=== PATIENT | male | born 1970 | race Caucasian/White ===

== ENCOUNTER 2016-05-05 01:04 | Observation (INO) ==
[2016-05-05] MEDS ORDERED: *HR* Metoprolol 5 MG/5 ML VIAL IVP ONE ×2 (01:20→09:58)
[2016-05-05] MEDS: 0.9 % Sodium Chloride 500 ML IVC ONE ×2 (01:27→02:43)
[2016-05-05 01:29] LABS: Basophils % 0.3 %; Eosinophils # 0.1 K/mcL (0.0-0.6); Eosinophils % 2.2 %; Hematocrit 45.5 % (37.5-50.1); Hemoglobin 15.6 g/dL (12.9-16.9); Lymphocytes # 2.5 K/mcL (0.6-4.6); Lymphocytes % 42.3 %; Mean Corpuscular HGB Conc 34.3 g/dL (31.6-35.5); Mean Corpuscular Hemoglobin 30.2 pg (28.0-33.3); Mean Corpuscular Volume 88.2 fL (83.0-100.0); Mean Platelet Volume 8.6 fL (9.4-12.4); Monocytes # 0.4 K/mcL (0.0-1.3); Monocytes % 7.3 %; Neutrophils # 2.8 K/mcL (1.6-8.9); Platelet Count 281 K/mcL (140-400); Red Blood Count 5.16 M/mcL (4.19-5.50); Segmented Neutrophils % 47.9 %
--- NOTE | 2016-05-05 01:30 | Emergency Department Note ---
Disposition Clinical Impression: Atrial fibrillation with RVR Disposition: Admitted As Inpatient Condition: Good Time of Disposition: 02:43 Arrhythmia/Palpitations HPI - General Chief Complaint: ED Arrhythmia/Palpitations Stated Complaint: palpitations Time Seen by Provider: 05/05/16 01:16 Source: patient Mode of arrival: EMS Limitations: no limitations Nursing Notes Reviewed: Yes Vital Signs Reviewed: Yes - History of Present Illness HPI Narrative: 46-year-old male with a history of atrial fibrillation, his rhythm controlled with Cardizem daily he takes 120 mg daily. Patient states that spontaneously this evening at approximately 1900 hrs., he started noticing palpitations and that his heart was racing, he denied chest pain shortness of breath and currently denies any other symptoms. He was given Rythmol by his take up operator Dr. Carson and told take this if he had refractory atrial fibrillation, he took 1 dose, this did not versus symptoms, his heart rate was in the 140s he actually went to the fire station, and they did an EKG at that time and showed he was in atrial fibrillation. Sending him the emergency department. He still denies chest pain or shortness of breath. Pt Subjective Complaint: rapid heart beat, palpitations, irregular heart beat, atrial fibrillation Onset (ago): hour(s) Time: 19:00 Duration: constant Severity: mild Context: occurred during rest Arrhythmia History: atrial fibrillation Associated symptoms: Reports: denies other symptoms. Denies: chest pain, shortness of breath, syncope, near-syncope, nausea, vomiting, anxiety - Related Data Home Medications Medication Instructions Recorded Confirmed Aspirin [Ecotrin] 325 mg PO ONCE 05/05/16 05/05/16 Diltiazem HCl [Cardizem] 120 mg PO ONCE 05/05/16 05/05/16 Allergies Allergy/AdvReac Type Severity Reaction Status Date / Time acetaminophen [From Vicodin] Allergy Nausea Verified 05/05/16 01:20 hydrocodone [From Vicodin] Allergy Nausea Verified 05/05/16 01:20 Review of Systems: A 14 point ROS was obtained and was negative except as per below or as documented in the HPI. Constitutional: Denies: fever, chills, weakness, weight change Eyes: Denies: eye pain, eye discharge, vision change ENT: Denies: ear pain, throat pain, hearing loss, epistaxis, congestion, Cardiovascular: +palpitations Denies: chest pain, dyspnea on exertion, edema, syncope Respiratory: Denies: cough, dyspnea, wheezes, hemoptysis, stridor Gastrointestinal: Denies: abdominal pain, nausea, vomiting. diarrhea, constipation, hematemesis, hematochezia Genitourinary: Denies: urgency, dysuria, frequency, hematuria Musculoskeletal: Denies: back pain, neck pain, arthralgia, myalgia Integumentary: Denies: rash, abrasion, lesions Neurological: Denies: headache, weakness, numbness, paresthesias, confusion, abnormal gait Psychiatric: Denies: anxiety, depression, suicidal thoughts, homicidal thoughts , Endocrine: Denies: fatigue Hematological/Lymphatic: Denies: easy bleeding, easy bruising Allergic/Immunologic: Denies: facial swelling, urticaria All systems ED: reviewed and negative except as stated. Past Medical History - Past Medical History Attestation: Yes The following information was validated with the patient. Source: patient Medical history: Reports: atrial fibrillation, GERD Psychiatric history: Reports: anxiety - Social History Smoking Status: Never smoker Smokeless Tobacco Status: No Alcohol use: Reports: none Drug use: Reports: none Physical Exam General: alert and oriented, in NAD, appears stated age, is pleasant and cooperative to exam Head: NCAT, no lesions Eyes: sclera anicteric, conjunctiva normal, PERRLA bilaterally, EOMI Bilaterally Ears: normal inspection, external ear wnl Nose: nasal septum nondeviated, sinuses nontender Throat: good dentition, mucous membranes moist Neck: no lymphadenopathy, trachea midline no deviation, no JVD Resp: CTA bilaterally, no resp distress, symmetric chest rise, no wheezes, rales , or rhonchi bilaterally CV: Irregularly irregular rhythm, tachycardia Abdomen: Soft, NTND, no hepatosplenomegaly, no hernias, Negative Rovsing's sign , Negative Barrientos's sign Back: normal inspection, no tenderness to palpation, Negative CVA tenderness bilaterally Neuro: A&O3, CN II-XII grossly intact bilaterally, no motor or sensory deficits bilaterally, gait normal, GCS 15 [id number] Ext: normal inspection, symmetric Active and Passive ROM UE and LE bilaterally , no pedal edema bilaterally Psych: normal mood, normal affect Skin: No rashes, skin warm, dry, intact - General Limitations: no limitations General appearance: alert, in no apparent distress Course Course Narrative: 46-year-old male with known atrial fibrillation, presents after an episode of atrial fibrillation started at 1900 tonight, chest pain workup ordered, rate is 147 and irregular on EKG, we will try IV Lopressor 5 mg. - Reevaluation(s) Reevaluation #1: Patient's rate did go down 119, but still irregular with Lopressor, will start diltiazem bolus of 10 in drip at 5 titrated to effect. Reevaluation #2: Patient admitted to medicine service for atrial fibrillation with RVR, Dr. Monteiro accepting physician Time: 02:20 Vital Signs Temperature 97.3 F L 05/05/16 01:05 Pulse Rate 112 05/05/16 01:05 Respiratory Rate 16 05/05/16 01:05 Blood Pressure 119/73 05/05/16 01:05 O2 Sat by Pulse Oximetry 98 05/05/16 01:05 Temperature 97.3 F L 05/05/16 01:05 Pulse Rate 71 05/05/16 02:29 Respiratory Rate 16 05/05/16 02:54 Blood Pressure 108/81 05/05/16 02:54 O2 Sat by Pulse Oximetry 98 05/05/16 02:29 Oxygen Delivery Oxygen Delivery Room Air Arrhythmia/Palpitations - Differential Diagnosis Differential Diagnosis: Likely: palpitations, sinus tachycardia, artial arrhythmia, ventricular premature beats, supraventricular tachycardia - Medical Records Medical records reviewed: Yes I reviewed the patient's medical records. - Lab Data Result diagrams: 05/05/16 01:22 05/05/16 01:22 Lab Results 05/05/16 05/05/16 05/05/16 Range/Units 01:22 01:22 01:22 WBC 5.9 (4.3-11.1) K/mcL RBC 5.16 (4.19-5.50) M/mcL Hgb 15.6 (12.9-16.9) g/dL Hct 45.5 (37.5-50.1) % MCV 88.2 (83.0-100.0) fL MCH 30.2 (28.0-33.3) pg MCHC 34.3 (31.6-35.5) g/dL RDW 12.0 (11.5-14.5) % Plt Count 281 (140-400) K/mcL MPV 8.6 L (9.4-12.4) fL Immature Gran % 0.0 (0-4) % Seg Neutrophils % 47.9 % Lymphocytes % 42.3 % Monocytes % 7.3 % Eosinophils % 2.2 % Basophils % 0.3 % Neutrophils # 2.8 (1.6-8.9) K/mcL Lymphocytes # 2.5 (0.6-4.6) K/mcL Monocytes # 0.4 (0.0-1.3) K/mcL Eosinophils # 0.1 (0.0-0.6) K/mcL Basophils # 0.0 (0.0-0.2) K/mcL PT 10.2 (9.4-12.1) Seconds INR 1.0 APTT 30.2 (26.0-36.0) Seconds Sodium 141 (136-145) mEq/L Potassium 4.1 (3.5-4.5) mEq/L Chloride 107 (98-109) mEq/L Carbon Dioxide 27 (19-29) mEq/L BUN 15 (8-26) mg/dL Creatinine 1.06 (0.72-1.25) mg/dL Est GFR ( Amer) > 60 (> 60) Est GFR (Non-Af Amer) > 60 (> 60) BUN/Creatinine Ratio 14 (6-26) Glucose 108 H (70-99) mg/dL Calculated Osmolality 293 (280-300) Calcium 9.7 (8.6-10.8) mg/dL Troponin I (0-0.03) ng/mL TSH 3.056 (0.350-4.840) mcIU/mL 05/05/16 Range/Units 01:22 WBC (4.3-11.1) K/mcL RBC (4.19-5.50) M/mcL Hgb (12.9-16.9) g/dL Hct (37.5-50.1) % MCV (83.0-100.0) fL MCH (28.0-33.3) pg MCHC (31.6-35.5) g/dL RDW (11.5-14.5) % Plt Count (140-400) K/mcL MPV (9.4-12.4) fL Immature Gran % (0-4) % Seg Neutrophils % % Lymphocytes % % Monocytes % % Eosinophils % % Basophils % % Neutrophils # (1.6-8.9) K/mcL Lymphocytes # (0.6-4.6) K/mcL Monocytes # (0.0-1.3) K/mcL Eosinophils # (0.0-0.6) K/mcL Basophils # (0.0-0.2) K/mcL PT (9.4-12.1) Seconds INR APTT (26.0-36.0) Seconds Sodium (136-145) mEq/L Potassium (3.5-4.5) mEq/L Chloride (98-109) mEq/L Carbon Dioxide (19-29) mEq/L BUN (8-26) mg/dL Creatinine (0.72-1.25) mg/dL Est GFR ( Amer) (> 60) Est GFR (Non-Af Amer) (> 60) BUN/Creatinine Ratio (6-26) Glucose (70-99) mg/dL Calculated Osmolality (280-300) Calcium (8.6-10.8) mg/dL Troponin I 0.00 (0-0.03) ng/mL TSH (0.350-4.840) mcIU/mL - Radiology Data Radiology results reviewed: Yes I reviewed the patient's radiology results. - EKG Data EKG attestation: Yes I reviewed and interpreted this EKG. EKG results narrative: Repeat EKG obtained shows heart rate of 69 bpm, still atrial fibrillation. Rate: tachycardia Rhythm: A.Fib ([address] segment elevations or depressions. ) Interpretation: nonspecific ST-T wave changes (Changes from previous EKG in August 2014) - Core Measures AMI Core Measures Followed: No Measure Exclusions: not indicated Critical Care Time Critical Care Time: Yes Total Critical Care Time: 35 Attestation: Critical care performed: Time is exclusive of separately billable procedures. Time includes: direct patient care, patient reassessment, coordination of patient care, interpretation of data (laboratory data, radiology data, and respiratory data), review of patient's medical records, medical consultation and documentation of patient care. Procedures included in critical care time: Procedures excluded from critical care time: Attestation Statement - Attestation Attestation: I, Kyle Meng MD, personally performed a history and physical exam of the patient and discussed their management with the resident. I reviewed the resident's note and agree with the documented findings, medical decision making , and plan of care. 46-year-old male with a prior history of paroxysmal atrial fibrillation presents to the emergency department with a complaint of palpitations. This started several hours earlier this evening. No chest pain or shortness of breath. No dizziness or syncope. On examination patient is a well-developed well-nourished well-appearing male in no acute distress. He is alert and oriented 3. There is no cyanosis or diaphoresis. Breath sounds are clear and equal bilaterally. Heart is tachycardic and irregularly irregular. Abdomen soft and nontender with normal bowel sounds. EKG shows atrial fibrillation with RVR. Labs reviewed. Chest x-ray negative. Patient received IV metoprolol, IV Cardizem, and Cardizem drip. The hospitalist, Dr. Monteiro, was consulted and accepted admission of the patient.
[2016-05-05 01:34] LABS: Prothrombin Time 10.2 Seconds (9.4-12.1)
[2016-05-05 01:37] LABS: Activated Partial Thrombo Time 30.2 Seconds (26.0-36.0)
[2016-05-05 01:42] LABS: BUN/Creatinine Ratio 14 (6-26); Blood Urea Nitrogen 15 mg/dL (8-26); Calcium 9.7 mg/dL (8.6-10.8); Carbon Dioxide 27 mEq/L (19-29); Chloride 107 mEq/L (98-109); Glucose 108 mg/dL (70-99); Osmolality,Calculated 293 (280-300); Potassium 4.1 mEq/L (3.5-4.5); Sodium 141 mEq/L (136-145); eGFR For African Americans > 60 (> 60); eGFR For Non-African Americans > 60 (> 60)
[2016-05-05 02:04] LABS: Thyroid Stimulating Hormone 3.056 mcIU/mL (0.350-4.840)
[2016-05-05] MEDS ORDERED: 0.9 % Sodium Chloride 1,000 ML IV ONE (02:19)
[2016-05-05] MEDS ORDERED: Naloxone 0.4 MG/ML INJ IVP PRN (03:06)
[2016-05-05] MEDS ORDERED: 0.9 % Sodium Chloride 250 ML ONE ×2 (03:16→04:59)
[2016-05-05] MEDS: Aspirin Enteric Coated 325 MG Tablet PO SCH (03:24)
--- NOTE | 2016-05-05 03:44 | Internal Med History&Physical ---
Date of Encounter: 05/05/16 Time of Encounter: 02:40 Internal Medicine - H&P: HPI Chief complaint: palpitation x 1day Admitted From: Emergency Dept Plans for Post Hospital Care: Home History of present illness: Mr. Delatorre is a 46 year old male with medical history significant for atrial fibrillation, his rhythm and rate-controlled cardizem CD daily 120 mg daily, HE ALSO HAS PRESCRIPTION FOR Rhythmol 150 mg po prn for acute episodes. The patient was at his basline level of health when at about 7pm yesterday, he experienced racing of his heart. He took a tablet of Rhythmol, but palpitation continue. He is a patient of Dr Carson. No chest pain or shortness of breath. He does not know what triggered this episode. He has only be hospitalized four times for afib with RVR since the diagnosis of atrial fibrillation in 2006. Other ROS were negative. He is FULL CODE as per discussion and nominates his Bozena DELATORRE ([phone]) as his NOK/POA. Medical history: Reports: atrial fibrillation, GERD Psychiatric history: Reports: anxiety Smoking Status: Never smoker Smokeless Tobacco Status: No Alcohol use: Reports: none Drug use: Reports: none Family history: mother: atrial fibrillation ROS: A 10-point ROS was performed, positives and relevant negatives are detailed , system-symptom not mentioned is assumed negative unless otherwise stated. Vital Signs Temperature 97.3 F L 05/05/16 01:05 Pulse Rate 112 05/05/16 01:05 Respiratory Rate 16 05/05/16 01:05 Blood Pressure 119/73 05/05/16 01:05 O2 Sat by Pulse Oximetry 98 05/05/16 01:05 Temperature 97.3 F L 05/05/16 01:05 Pulse Rate 71 05/05/16 02:29 Respiratory Rate 16 05/05/16 02:54 Blood Pressure 108/81 05/05/16 02:54 O2 Sat by Pulse Oximetry 98 05/05/16 02:29 No pale, anicteric, afebrile, acyanotic, not in distress, Moist mucosa, EOMI, PERRL HEENT: no cervical or jugular LN. 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 Skin: No active skin lesion Extremities: No pedal edema, normal pedal pulses, nocalf tenderness. Lab Results 05/05/16 05/05/16 05/05/16 Range/Units 01:22 01:22 01:22 WBC 5.9 (4.3-11.1) K/mcL RBC 5.16 (4.19-5.50) M/mcL Hgb 15.6 (12.9-16.9) g/dL Hct 45.5 (37.5-50.1) % MCV 88.2 (83.0-100.0) fL MCH 30.2 (28.0-33.3) pg MCHC 34.3 (31.6-35.5) g/dL RDW 12.0 (11.5-14.5) % Plt Count 281 (140-400) K/mcL MPV 8.6 L (9.4-12.4) fL Immature Gran % 0.0 (0-4) % Seg Neutrophils % 47.9 % Lymphocytes % 42.3 % Monocytes % 7.3 % Eosinophils % 2.2 % Basophils % 0.3 % Neutrophils # 2.8 (1.6-8.9) K/mcL Lymphocytes # 2.5 (0.6-4.6) K/mcL Monocytes # 0.4 (0.0-1.3) K/mcL Eosinophils # 0.1 (0.0-0.6) K/mcL Basophils # 0.0 (0.0-0.2) K/mcL PT 10.2 (9.4-12.1) Seconds INR 1.0 APTT 30.2 (26.0-36.0) Seconds Sodium 141 (136-145) mEq/L Potassium 4.1 (3.5-4.5) mEq/L Chloride 107 (98-109) mEq/L Carbon Dioxide 27 (19-29) mEq/L BUN 15 (8-26) mg/dL Creatinine 1.06 (0.72-1.25) mg/dL Est GFR ( Amer) > 60 (> 60) Est GFR (Non-Af Amer) > 60 (> 60) BUN/Creatinine Ratio 14 (6-26) Glucose 108 H (70-99) mg/dL Calculated Osmolality 293 (280-300) Calcium 9.7 (8.6-10.8) mg/dL Troponin I (0-0.03) ng/mL TSH 3.056 (0.350-4.840) mcIU/mL 05/05/16 Range/Units 01:22 WBC (4.3-11.1) K/mcL RBC (4.19-5.50) M/mcL Hgb (12.9-16.9) g/dL Hct (37.5-50.1) % MCV (83.0-100.0) fL MCH (28.0-33.3) pg MCHC (31.6-35.5) g/dL RDW (11.5-14.5) % Plt Count (140-400) K/mcL MPV (9.4-12.4) fL Immature Gran % (0-4) % Seg Neutrophils % % Lymphocytes % % Monocytes % % Eosinophils % % Basophils % % Neutrophils # (1.6-8.9) K/mcL Lymphocytes # (0.6-4.6) K/mcL Monocytes # (0.0-1.3) K/mcL Eosinophils # (0.0-0.6) K/mcL Basophils # (0.0-0.2) K/mcL PT (9.4-12.1) Seconds INR APTT (26.0-36.0) Seconds Sodium (136-145) mEq/L Potassium (3.5-4.5) mEq/L Chloride (98-109) mEq/L Carbon Dioxide (19-29) mEq/L BUN (8-26) mg/dL Creatinine (0.72-1.25) mg/dL Est GFR ( Amer) (> 60) Est GFR (Non-Af Amer) (> 60) BUN/Creatinine Ratio (6-26) Glucose (70-99) mg/dL Calculated Osmolality (280-300) Calcium (8.6-10.8) mg/dL Troponin I 0.00 (0-0.03) ng/mL TSH (0.350-4.840) mcIU/mL CXR: normal, no acute cardiopulmonary finding EKG 1; A fib with RVR, VENT NUET=271 EKG 2= A fib 69. IMP Atrial fibrillation with RVR plan Admit to telemetry Continue Cardizem drip Cardiology consult (Dr Carson is his rn relief charge) Continue ASA 325 MG for stroke prophylaxis, CHADS2=0. He may need cardioversion if he remains in afib despite achievement of rate control. I discussed my assessment with the patient, he verbalized understanding and is agreeable to admission. Past Med Surg Social Fam HX - Past Medical History Medical history: atrial fibrillation, GERD Psychiatric history: anxiety - Social History Smoking Status: Never smoker Smokeless Tobacco Status: No Alcohol use: none Drug use: none - Family History Father Living Status: Hx Family Endocrine Disorder: Yes Mother Living Status: Still Living Hx Family Cardiac Disorders: Yes (atrial fibrillitation) Internal Medicine - H&P: Meds Aspirin [Ecotrin] 325 mg PO ONCE 05/05/16 [History] Diltiazem HCl [Cardizem] 120 mg PO ONCE 05/05/16 [History] Allergies acetaminophen [From Vicodin] Allergy (Verified 05/05/16 01:20) Nausea hydrocodone [From Vicodin] Allergy (Verified 05/05/16 01:20) Nausea All Systems PM: A 10-system review of systems was performed and is negative for pertinent findings except as documented above in the HPI. - Constitutional Vitals: Temp Pulse Resp BP Pulse Ox 97.3 F L 71 16 108/81 98 05/05/16 01:05 05/05/16 02:29 05/05/16 02:54 05/05/16 02:54 05/05/16 02:29 Internal Med - H&P Results - Labs CBC & Chem 7: 05/05/16 01:22 05/05/16 01:22 - VTE Reasons for not Prescribing Prophylaxis: Treatment not Indicated - Low risk for VTE
--- NOTE | 2016-05-05 10:07 | Cardiology Consult Note ---
Date of Encounter: 05/05/16 Time of Encounter: 09:30 Assessment and Plan (1) PAF (paroxysmal atrial fibrillation) Current Visit: Yes Status: Chronic Hx of PAF dating back to 2006. 2 episodes of PAF in the past 2 years. Formerly on Rythmol scheduled 8+ years ago, has been recently controlled on Cardizem 120 mg daily. CHA2Ds Vasc=0, has been on ASA 325. Atrial fibrillation with RVR, rate 147 upon admission. Now rate controlled in the 80s. On Cardizem gtt at 7.5 mg/hr. TSH normal, electrolytes within expected range. Continue rate control strategy for now, give Lopressor 2.5 mg IV x1. If rhythm control strategy desired, recommend EVELIA guided CV in AM. To be followed by anticoagulation for at least 4 weeks. Will make NPO after midnight. Discussion w patient/family: The assessment and plan as outlined above was discussed with the patient and/or family members who expressed understanding and agreement. All questions were answered. Thank you for involving us in the care of your patient. Please call with any questions. The patient will be discussed and reviewed with Dr. Carrasquillo; changes to be made accordingly. History of Present Illness Consult date: 05/05/16 Requesting physician: Kris Landon Consult reason: Afib Chief complaint: Afib History of present illness: Mr. Cintron is a 46 year old male with past medical history significant for PAF who presents to the ED with complaints of fatigue and palpitations that started yesterday. Initial episode of AFib was in 2006. He reports "I knew my heart was out of rhythm again." Symptoms started shortly after removing a fingernail that was falling off due to injury; he endorses that while removing his fingernail he became nauseated and shortly thereafter he knew he went into Afib. He took prn Rythmol as directed by Dr. Carson which did not help symptoms. Upon arrival to ED, HR was 140's-150s. Prior CV testing includes: TTE 09/13/14: LVEF 45%, mild global hypokinesis, no significant valvular dysfunction, mild LVDD St. Echocardiogram 10/31/14: Baseline EF 50%. Normal treadmill stress echocardiogram. Exercise time=12 minutes, achieved 13 METs. Past Med Surg Social Fam HX - Past Medical History Medical history: atrial fibrillation, GERD Psychiatric history: anxiety - Social History Smoking Status: Never smoker Smokeless Tobacco Status: No Alcohol use: none Drug use: none - Family History Father Living Status: Hx Family Endocrine Disorder: Yes Mother Living Status: Still Living Hx Family Cardiac Disorders: Yes (atrial fibrillitation) Medications and Allergies Aspirin [Ecotrin] 325 mg PO ONCE 05/05/16 [History] Diltiazem HCl [Cardizem] 120 mg PO ONCE 05/05/16 [History] LORazepam [Ativan] 0.5 mg PO BID PRN 05/05/16 [History] Allergies acetaminophen [From Vicodin] Allergy (Verified 05/05/16 08:22) Nausea hydrocodone [From Vicodin] Allergy (Verified 05/05/16 08:22) Nausea All Systems Review: A 10-system review of systems was performed and is negative for pertinent findings except as documented above in the HPI. - Cardiovascular Cardiovascular: as per HPI Physical Examination Vital Signs, Last 4 Hours Temp Pulse Resp BP Pulse Ox 05/05/16 09:40 82 121/73 05/05/16 09:25 75 116/82 05/05/16 09:05 82 110/78 05/05/16 08:50 116 106/72 05/05/16 06:58 98.0 F 82 16 112/67 98 General: Conversant, No Apparent Distress HEENT: Atraumatic, Normocephaly, Mucus Membranes Moist Cardiac: Other (irregularly irregular) Lungs: Normal Breath Sounds Neuro: Alert and responsive Abdomen: Soft Skin: No rashes noted on visualized skin Musculoskeletal: No Chest Wall Tenderness Extremities: No Edema, Normal Pulses Results 05/05/16 01:22 05/05/16 01:22 Active Medications Aspirin (Aspirin Ec) 325 mg PO ONCE SCOOTER Stop: 11/04/16 03:01 Last Admin: 05/05/16 03:24 Dose: 325 mg Diltiazem HCl 125 mg/ Dextrose 125 mls @ 5 mls/hr IVC .Q24H SCOOTER; 5 MG/HR PRN Reason: Protocol Stop: 11/04/16 01:46 Last Admin: 05/05/16 09:13 Dose: 7.5 mg/hr, 7.5 mls/hr Metoprolol Tartrate (Lopressor) 2.5 mg IVP ONCE ONE Stop: 05/05/16 09:59 Naloxone HCl (Narcan) 0.4 mg IVP Q2MIN PRN PRN Reason: Opioid Reversal Stop: 11/04/16 03:07 - Imaging and Cardiology Echo: report reviewed Other Results: 12 hour tele: avg HR=90 Afib. - EKG Interpretation EKG results cardiology: personally reviewed Consult Discharge Plan - Plan Referrals: NO,PCP [Non-Partnered Physician] -
--- NOTE | 2016-05-05 12:27 | Internal Med Progress Note ---
Date of Encounter: 05/05/16 Time of Encounter: 10:00 - Assessment and plan (1) Atrial fibrillation with RVR Current Visit: Yes Status: Acute Assessment and plan: Currently on Cardizem drip uptitrated to 7.5 mL per hour. He is asymptomatic. Alert and oriented 3. Denies pain, shortness of breath, palpitations, lightheadedness or dizziness. [id number] score 0- no indication for anticoagulation therapy- no DVT prophylaxis indicated- up ad magalys, observation patient. Cardiology is on board. (2) PAF (paroxysmal atrial fibrillation) Current Visit: Yes Status: Chronic (3) GERD (gastroesophageal reflux disease) Current Visit: Yes Status: Chronic Assessment and plan: Denies current symptoms Qualifiers: Esophagitis presence: esophagitis presence not specified Qualified Code(s) : K21.9 - Gastro-esophageal reflux disease without esophagitis - Subjective Interval history: Patient seen and examined. On examination, patient sitting upright in bed watching television. Patient denies shortness of breath or pain. He states he is eating well. He denies concerns this time. - Constitutional Vitals: Temp Pulse Resp BP Pulse Ox 98.2 F 81 16 118/70 97 05/05/16 11:15 05/05/16 11:15 05/05/16 11:15 05/05/16 11:15 05/05/16 11:15 General appearance: Present: A&O X 3, pleasant, no acute distress, answers questions appropriately - Head Head exam: Present: atraumatic, normocephalic - Eye Eye exam: Present: PERRL, conjuntiva pink, sclera anicteric Pupils: Present: PERRL - Neck Neck exam general surgery: Present: supple, trachea midline. Absent: lymphadenopathy - Respiratory Respiratory exam: Present: CTAB. Absent: accessory muscle use, rales, rhonchi, wheezes - Cardiovascular Cardiovascular exam: Present: irregular rhythm, +S1, +S2. Absent: diastolic murmur, gallop, rubs, systolic murmur - GI/Abdominal GI/Abdominal exam: Present: normal bowel sounds, soft, no peritoneal signs. Absent: distended, tenderness - Extremities Exam Extremities exam: Present: warm, radial pulses palpable and symetrical. Absent : calf tenderness, cyanotic, pedal edema - Neurological Exam Neurological exam: Present: alert, CN II-XII intact, normal gait, oriented X3, no focal deficits, strengths equal and symetr throughout. Absent: pronater drift, facial droop, speech deficit - Skin Skin exam: Present: dry, intact, normal color, warm Internal Medicine: Result - Labs CBC & Chem 7: 05/05/16 01:22 05/05/16 01:22 - ABG Interpretation ABG results: PT/INR, D-dimer PT 10.2 Seconds (9.4-12.1) 05/05/16 01:22 - VTE Reasons for not Prescribing Prophylaxis: Treatment not Indicated - Low risk for VTE Consult Discharge Plan - Plan Referrals: Mark Norwood DO [Primary Care Provider] - 05/12/16 9:30 am
--- NOTE | 2016-05-05 15:08 | Electrocardiograph Report ---
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
--- NOTE | 2016-05-05 15:08 | Electrocardiograph Report ---
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
[2016-05-06] MEDS: Aspirin Enteric Coated 325 MG Tablet PO SCH ×2 (02:51→02:56)
[2016-05-06 07:44] VITALS: BP 105/71
[2016-05-06] MEDS ORDERED: Diltiazem CD (24hr) 120 MG CAPSULE PO SCH (09:00)
--- NOTE | 2016-05-06 09:03 | Cardiology Progress Note ---
Date of Encounter: 05/06/16 Time of Encounter: 08:30 Assessment and Plan (1) PAF (paroxysmal atrial fibrillation) Current Visit: Yes Status: Chronic Hx of PAF dating back to 2006. 2 episodes of PAF in the past 2 years. Formerly on Rythmol scheduled 8+ years ago, has been recently controlled on Cardizem 120 mg daily. CHA2Ds Vasc=0, has been on ASA 325. Atrial fibrillation with RVR, rate 147 upon admission; suspect paroxysm provoked by adrenergic response. TSH normal, electrolytes within expected range. Betablocker started yesterday evening and shortly thereafter converted to SR. Continue cardizem and atenolol as outpatient. Plan communicated with primary service, follow-up with EP as outpatient. Discussion w patient/family: The assessment and plan as outlined above was discussed with the patient and/or family members who expressed understanding and agreement. All questions were answered. Thank you for involving us in the care of your patient. Please call with any questions. The patient will be discussed and reviewed with Dr. Carrasquillo; Cardiology will sign- off, follow-up with as outpt. Subjective Principal diagnosis: Afib Interval history: Seen and examined. Converted to NSR around 6PM yesterday evening. No complaints overnight. Objective Vital Signs, Last 4 Hours Temp Pulse Resp BP Pulse Ox 05/06/16 07:43 97.3 F L 85 12 105/71 98 General: Conversant, No Apparent Distress HEENT: Atraumatic, Normocephaly, Mucus Membranes Moist Cardiac: Reg Rate and Rhythm, Normal S1 and S2 Lungs: Normal Breath Sounds Neuro: Alert and responsive Abdomen: Soft Skin: No rashes noted on visualized skin Musculoskeletal: No Chest Wall Tenderness Extremities: No Edema, Normal Pulses Results 05/05/16 01:22 05/05/16 01:22 - Imaging and Cardiology Stress Test: report reviewed Echo: report reviewed - EKG Interpretation EKG results cardiology: personally reviewed - VTE Reasons for not Prescribing Prophylaxis: Treatment not Indicated - Low risk for VTE Consult Discharge Plan - Plan Referrals: Mark Norwood DO [Primary Care Provider] - 05/12/16 9:30 am
--- NOTE | 2016-05-06 13:23 | Discharge Summary ---
Date of Encounter: 05/06/16 Time of Encounter: 12:30 - Discharge Diagnosis (1) Atrial fibrillation with RVR Priority: Primary Status: Resolved Comments: Was on a Cardizem drip, converted to NSR. No ablation indicated. Started on beta lalo per cardiology for suspected paroxysmal atrial fibrillation provoked by adjuvant allergic response. Follow up outpatient. (2) PAF (paroxysmal atrial fibrillation) Priority: Secondary Status: Chronic (3) GERD (gastroesophageal reflux disease) Priority: Secondary Status: Chronic Qualifiers: Esophagitis presence: esophagitis presence not specified Qualified Code(s) : K21.9 - Gastro-esophageal reflux disease without esophagitis - Discharge Medications Prescriptions: Atenolol [Tenormin] 25 mg PO DAILY #30 tablet Home Medications: Aspirin [Ecotrin] 325 mg PO ONCE 05/05/16 [History] Diltiazem HCl [Cardizem] 120 mg PO ONCE 05/05/16 [History] LORazepam [Ativan] 0.5 mg PO BID PRN 05/05/16 [History] Atenolol [Tenormin] 25 mg PO DAILY #30 tablet 05/06/16 [Rx] Allergies/Adverse Reactions: Allergies acetaminophen [From Vicodin] Allergy (Verified 05/05/16 08:22) Nausea hydrocodone [From Vicodin] Allergy (Verified 05/05/16 08:22) Nausea Procedures/tests Complete & Pending: Procedures Performed prior 72 hours Category Date Time Status ECG 12 lead ECG [ECG] Stat Y 05/05/16 02:19 Completed Date of admission: 05/05/16 02:17 Primary care physician: Mark Norwood, Consults: 05/05/16 03:38 Consult to Cardiology [CONS] Routine Comment: Consulting Provider: Cardiology Trish Reason for Consult: A FIB RVR Call Completed: No Discharging clinician: Amalia Garcia Anticipated date of discharge: 05/06/16 - Patient Status Disposition: Home, Self-Care Condition: Good Functional capacity at discharge: independent ambulation Overall status at discharge: patient is back to baseline - Discharge Instructions Follow Up With: Mark Norwood DO [Primary Care Provider] - 05/12/16 9:30 am Fitz Carson MD [Partnered Physician] - Additional Instructions: Follow-up with primary care provider as scheduled, follow-up with cardiology as needed - Diet and Activity Activity: increase activity as tolerated, resume usual activities as tolerated Diet: regular diet Hospital course: Mr. Cintron is a 46 year old male with past medical history of atrial fibrillation rate controlled on Cardizem and Rythmol as needed, GERD, anxiety. Patient presented to the emergency department chief complaint palpitations 1 day. Patient stating he took his as needed Rythmol tablet but palpitation continued. Patient denied any chest pain or shortness of breath. Upon presentation to the emergency department, patient noted to be A. fib RVR. Chest x-ray negative. Patient was admitted to the hospitalist service for further evaluation and management. Patient was started on a Cardizem drip. He was admitted and observed over the course of 3 days. On day 2, patient spontaneously converted back to sinus rhythm and an ablation was not indicated at that point. Radiology was on board throughout this admission. Per cardiology, strong suspicion for paroxysmal atrial fibrillation provoked by adrenergic response since the patient was started on low-dose propanolol. [id number] score 0- no indication for anticoagulation therapy. Patient remained stable and asymptomatic and he was discharged home in stable condition with close outpatient follow-up recommended. ITS Impressions Chest X-Ray 05/05/16 01:20 IMPRESSION: Negative portable chest. D/ / Yovany Vega MD / Yovany Vega MD Interpreting Provider: Yovany Vega MD - Time Spent with Patient Total time spent providing and/or coordinating discharge services: - Constitutional Vitals: Temp Pulse Resp BP Pulse Ox 97.3 F L 85 12 105/71 98 05/06/16 07:43 05/06/16 07:43 05/06/16 07:43 05/06/16 07:43 05/06/16 07:43 General appearance: Present: A&O X 3, pleasant, no acute distress, answers questions appropriately - Head Head exam: Present: atraumatic, normocephalic - Eye Eye exam: Present: PERRL, conjuntiva pink, sclera anicteric Pupils: Present: PERRL - Neck Neck exam general surgery: Present: supple, trachea midline. Absent: lymphadenopathy - Respiratory Respiratory exam: Present: CTAB. Absent: accessory muscle use, rales, respiratory distress, rhonchi, wheezes - Cardiovascular Cardiovascular exam: Present: RRR, +S1, +S2. Absent: diastolic murmur, gallop, rubs, systolic murmur - GI/Abdominal GI/Abdominal exam: Present: normal bowel sounds, soft, no peritoneal signs. Absent: distended, tenderness - Extremities Exam Extremities exam: Present: warm, radial pulses palpable and symetrical. Absent : calf tenderness, cyanotic, pedal edema - Neurological Exam Neurological exam: Present: alert, CN II-XII intact, normal gait, oriented X3, no focal deficits, strengths equal and symetr throughout. Absent: pronater drift, facial droop, speech deficit - Skin Skin exam: Present: dry, intact, normal color, warm - VTE Reasons for not Prescribing Prophylaxis: Treatment not Indicated - Low risk for VTE
--- NOTE | 2016-05-06 14:45 | Electrocardiograph Report ---
[facility] Test Date: 2016-05-05 Pat Name: ROMAIN DELATORRE Department: 113 Room: 3B39 Gender: M Manager Solution: [id number] Requested By: Amalia Garcia Order Number: [id number] Reading MD: Liudmila Carson Measurements Intervals [place] Rate: 57 P: 15 MA: 116 QRS: 12 QRSD: 105 T: 22 QT: 401 QTc: 395 Interpretive Statements SINUS BRADYCARDIA WITH SHORT MA INTERVAL Electronically Signed On 05-06-16 14:40:55 EST by Liudmila Carson
== END 2016-05-06 13:54 | disposition home or self-care (01) ==
LOC: EMEROO 01:04 → 3BNU 01:04
PROVIDERS: ADMIT Internal Medicine; ATTEND Nurse Practitioner Family

== ENCOUNTER 2016-05-30 20:03 | Observation (INO) ==
--- NOTE | 2016-05-30 20:17 | Emergency Department Note ---
Disposition Clinical Impression: Paroxysmal atrial fibrillation with RVR Disposition: Admitted As Inpatient Condition: Good General Adult HPI - General Chief complaint: ED Arrhythmia/Palpitations Stated complaint: "think my heart's out of rhythm" Time Seen by Provider: 05/30/16 20:14 Source: patient Limitations: no limitations - History of Present Illness Pain Scale: 0 - Related Data Home Medications Medication Instructions Recorded Confirmed Aspirin [Ecotrin] 325 mg PO DAILY 05/05/16 05/30/16 Diltiazem HCl [Cardizem] 120 mg PO DAILY 05/05/16 05/30/16 LORazepam [Ativan] 0.5 mg PO BID PRN 05/05/16 05/30/16 Previous Rx's Medication Instructions Recorded Atenolol [Tenormin] 25 mg PO DAILY #30 tablet 05/06/16 Allergies Allergy/AdvReac Type Severity Reaction Status Date / Time acetaminophen [From Vicodin] Allergy Nausea Verified 05/05/16 08:22 hydrocodone [From Vicodin] Allergy Nausea Verified 05/05/16 08:22 Past Medical History - Past Medical History Medical history: Reports: atrial fibrillation, GERD Psychiatric history: Reports: anxiety - Social History Smoking Status: Never smoker Smokeless Tobacco Status: No Alcohol use: Reports: none Drug use: Reports: none Physical Exam - General Limitations: no limitations General appearance: alert, in no apparent distress Course Vital Signs Temperature 97.6 F 05/30/16 20:03 Pulse Rate 93 05/30/16 20:03 Respiratory Rate 18 05/30/16 20:03 Blood Pressure 122/73 05/30/16 20:03 O2 Sat by Pulse Oximetry 97 05/30/16 20:03 Temperature 97.6 F 05/30/16 20:03 Pulse Rate 90 05/30/16 21:35 Respiratory Rate 18 05/30/16 22:22 Blood Pressure 111/86 05/30/16 22:22 O2 Sat by Pulse Oximetry 98 05/30/16 21:35 Oxygen Delivery Oxygen Delivery Room Air Medical Decision Making - Lab Data Result diagrams: 05/30/16 20:25 05/30/16 20:25 Lab Results 05/30/16 05/30/16 05/30/16 Range/Units 20:25 20:25 20:25 WBC 5.5 (4.3-11.1) K/mcL RBC 5.11 (4.19-5.50) M/mcL Hgb 15.4 (12.9-16.9) g/dL Hct 44.9 (37.5-50.1) % MCV 87.9 (83.0-100.0) fL MCH 30.1 (28.0-33.3) pg MCHC 34.3 (31.6-35.5) g/dL RDW 12.1 (11.5-14.5) % Plt Count 282 (140-400) K/mcL MPV 8.7 L (9.4-12.4) fL Immature Gran % 0.2 (0-4) % Seg Neutrophils % 38.9 % Lymphocytes % 51.5 % Monocytes % 6.8 % Eosinophils % 2.2 % Basophils % 0.4 % Neutrophils # 2.1 (1.6-8.9) K/mcL Lymphocytes # 2.8 (0.6-4.6) K/mcL Monocytes # 0.4 (0.0-1.3) K/mcL Eosinophils # 0.1 (0.0-0.6) K/mcL Basophils # 0.0 (0.0-0.2) K/mcL PT 11.0 (9.4-12.1) Seconds INR 1.0 APTT 32.9 (26.0-36.0) Seconds Sodium 144 (136-145) mEq/L Potassium 3.9 (3.5-4.5) mEq/L Chloride 106 (98-109) mEq/L Carbon Dioxide 28 (19-29) mEq/L BUN 14 (8-26) mg/dL Creatinine 1.05 (0.72-1.25) mg/dL Est GFR ( Amer) > 60 (> 60) Est GFR (Non-Af Amer) > 60 (> 60) BUN/Creatinine Ratio 13 (6-26) Glucose 95 (70-99) mg/dL Calculated Osmolality 298 (280-300) Calcium 10.0 (8.6-10.8) mg/dL Troponin I (0-0.03) ng/mL TSH 2.303 (0.350-4.840) mcIU/mL 05/30/16 Range/Units 20:25 WBC (4.3-11.1) K/mcL RBC (4.19-5.50) M/mcL Hgb (12.9-16.9) g/dL Hct (37.5-50.1) % MCV (83.0-100.0) fL MCH (28.0-33.3) pg MCHC (31.6-35.5) g/dL RDW (11.5-14.5) % Plt Count (140-400) K/mcL MPV (9.4-12.4) fL Immature Gran % (0-4) % Seg Neutrophils % % Lymphocytes % % Monocytes % % Eosinophils % % Basophils % % Neutrophils # (1.6-8.9) K/mcL Lymphocytes # (0.6-4.6) K/mcL Monocytes # (0.0-1.3) K/mcL Eosinophils # (0.0-0.6) K/mcL Basophils # (0.0-0.2) K/mcL PT (9.4-12.1) Seconds INR APTT (26.0-36.0) Seconds Sodium (136-145) mEq/L Potassium (3.5-4.5) mEq/L Chloride (98-109) mEq/L Carbon Dioxide (19-29) mEq/L BUN (8-26) mg/dL Creatinine (0.72-1.25) mg/dL Est GFR ( Amer) (> 60) Est GFR (Non-Af Amer) (> 60) BUN/Creatinine Ratio (6-26) Glucose (70-99) mg/dL Calculated Osmolality (280-300) Calcium (8.6-10.8) mg/dL Troponin I 0.01 (0-0.03) ng/mL TSH (0.350-4.840) mcIU/mL Attestation Statement - Attestation Attestation: I examined this patient and my medical decision-making was reviewed with the [employer] DRILLER HELPER/PA/Advanced Practice Nurse/Resident Physician. I agree with the documented findings, disposition and treatment plan as described except to the extent set forth below. [id number] time provided in conjunction with the resident physician Patient presents ambulatory to the treatment area with palpitations. He has a known history of atrial fibrillation for which he takes Cardizem and atenolol. He takes aspirin but no other blood thinners. EKG reviewed by me. Patient appears in no acute distress
[2016-05-30 20:28] LABS: Basophils % 0.4 %; Eosinophils # 0.1 K/mcL (0.0-0.6); Eosinophils % 2.2 %; Hematocrit 44.9 % (37.5-50.1); Hemoglobin 15.4 g/dL (12.9-16.9); Immature Granulocytes % 0.2 % (0-4); Lymphocytes # 2.8 K/mcL (0.6-4.6); Lymphocytes % 51.5 %; Mean Corpuscular HGB Conc 34.3 g/dL (31.6-35.5); Mean Corpuscular Hemoglobin 30.1 pg (28.0-33.3); Mean Corpuscular Volume 87.9 fL (83.0-100.0); Mean Platelet Volume 8.7 fL (9.4-12.4); Monocytes # 0.4 K/mcL (0.0-1.3); Monocytes % 6.8 %; Neutrophils # 2.1 K/mcL (1.6-8.9); Platelet Count 282 K/mcL (140-400); Red Blood Count 5.11 M/mcL (4.19-5.50); Red Cell Distribution Width 12.1 % (11.5-14.5); Segmented Neutrophils % 38.9 %
--- NOTE | 2016-05-30 20:31 | Emergency Department Note ---
Disposition Clinical Impression: Paroxysmal atrial fibrillation with RVR Disposition: Admitted As Inpatient Condition: Good Referrals: NO,PCP [Non-Partnered Physician] - Forms: ED Satisfaction Letter Time of Disposition: 21:59 Arrhythmia/Palpitations HPI - General Chief Complaint: ED Arrhythmia/Palpitations Stated Complaint: "think my heart's out of rhythm" Time Seen by Provider: 05/30/16 20:14 Source: patient Mode of arrival: ambulatory Limitations: no limitations Nursing Notes Reviewed: Yes Vital Signs Reviewed: Yes - History of Present Illness HPI Narrative: Patient is a 46-year-old male with past medical history of paroxysmal A. fib with RVR. Currently on diltiazem 120 mg daily, atenolol 25 mg daily. Not currently on any blood thinners, takes 325 mg aspirin daily. He states that he has had 6-7 episodes over the past 10 years and going in A. fib with RVR. Currently, denies any chest pain, shortness of breath, nausea, vomiting, fevers , abdominal pain. He did admit to some mild chest burning prior to arrival. This has dissipated. He also admits to diarrhea yesterday that has resolved today. Otherwise, no other current symptoms. He states that he has been admitted in the past answered on a Cardizem drip and then converted back to normal sinus rhythm without any further intervention. - Related Data Home Medications Medication Instructions Recorded Confirmed Aspirin [Ecotrin] 325 mg PO ONCE 05/05/16 05/05/16 Diltiazem HCl [Cardizem] 120 mg PO ONCE 05/05/16 05/05/16 LORazepam [Ativan] 0.5 mg PO BID PRN 05/05/16 05/05/16 Previous Rx's Medication Instructions Recorded Atenolol [Tenormin] 25 mg PO DAILY #30 tablet 05/06/16 Allergies Allergy/AdvReac Type Severity Reaction Status Date / Time acetaminophen [From Vicodin] Allergy Nausea Verified 05/05/16 08:22 hydrocodone [From Vicodin] Allergy Nausea Verified 05/05/16 08:22 All systems ED: reviewed and negative except as stated. Past Medical History - Past Medical History Attestation: Yes The following information was validated with the patient. Medical history: Reports: atrial fibrillation, GERD Psychiatric history: Reports: anxiety - Social History Smoking Status: Never smoker Smokeless Tobacco Status: No Alcohol use: Reports: none Drug use: Reports: none Physical Exam - General Limitations: no limitations General appearance: alert, in no apparent distress - Head Head exam: atraumatic, normocephalic, normal inspection - Eye Eye exam: Present: normal appearance, PERRL, EOMI - ENT ENT exam: normal exam, normal oropharynx, mucous membranes moist - Neck Neck exam: Present: normal inspection, full ROM, trachea midline - Chest Chest inspection: Present: normal inspection, symmetric chest wall rise - Respiratory Respiratory exam: Present: normal lung sounds bilaterally - Cardiovascular Cardiovascular exam: Present: tachycardia, irregular rhythm, normal heart sounds - Abdominal Exam Abdominal exam: Present: soft, Non-Tender. Absent: tenderness, distention, guarding, rebound, rigidity - Extremities Exam Extremities exam: Present: normal inspection, full ROM. Absent: tenderness, pedal edema - Expanded Upper Extremity Exam Shoulder exam: Present: normal inspection, full ROM Arm exam: Present: normal inspection, full ROM Elbow exam: Present: normal inspection, full ROM Forearm/Wrist exam: Present: normal inspection, full ROM Hand exam: Present: normal inspection, full ROM Vascular exam: Normal: capillary refill, radial pulse - Back Exam Back exam: Present: normal inspection, full ROM. Absent: tenderness - Neurological Exam Neurological exam: Present: alert, oriented X3 - Psychiatric Psychiatric exam: Present: normal affect, normal mood - Skin Skin exam: Present: warm, dry, intact, normal color Course Course Narrative: Patient heart rate in 150s on the monitor on my exam. Blood pressure was 105 over 70s. Otherwise, the rest of the vitals were within normal limits. Physical exam was benign. Will give the patient 10 mg of Cardizem push. Will monitor vitals and may have to start him on a Cardizem drip. We will also obtain a troponin, basic labs, chest x-ray. EKG shows A. fib with RVR, rate 138. No acute ST elevation or depression. 21:34 patient became rate controlled after receiving 10 mg Cardizem IV. His rate is now in the 80s. Blood pressure in 90s over 60s to 70s. 1 L normal saline bolus is currently infusing. Repeat EKG shows patient is still in A. fib at a rate of 89. No acute ST elevation or depression. I spoke with the satellite installer, Dr. Schulz, who wanted the patient admitted under hospitalist service with cardiology as a consult. He also requested a heparin drip be started for the patient. Patient is happy and agreeable with this plan. 21:58 Dr. Monteiro accepted for admission. Vital Signs Temperature 97.6 F 05/30/16 20:03 Pulse Rate 93 05/30/16 20:03 Respiratory Rate 18 05/30/16 20:03 Blood Pressure 122/73 05/30/16 20:03 O2 Sat by Pulse Oximetry 97 05/30/16 20:03 Temperature 97.6 F 05/30/16 20:03 Pulse Rate 90 05/30/16 21:35 Respiratory Rate 18 05/30/16 21:35 Blood Pressure 109/81 05/30/16 21:35 O2 Sat by Pulse Oximetry 98 05/30/16 21:35 Oxygen Delivery Oxygen Delivery Room Air Arrhythmia/Palpitations - MDM Narrative Medical decision making narrative: Patient heart rate in 150s on the monitor on my exam. Blood pressure was 105 over 70s. Otherwise, the rest of the vitals were within normal limits. Physical exam was benign. Will give the patient 10 mg of Cardizem push. Will monitor vitals and may have to start him on a Cardizem drip. We will also obtain a troponin, basic labs, chest x-ray. EKG shows A. fib with RVR, rate 138. No acute ST elevation or depression. 21:34 patient became rate controlled after receiving 10 mg Cardizem IV. His rate is now in the 80s. Blood pressure in 90s over 60s to 70s. 1 L normal saline bolus is currently infusing. Repeat EKG shows patient is still in A. fib at a rate of 89. No acute ST elevation or depression. I spoke with the satellite installer, Dr. Schulz, who wanted the patient admitted under hospitalist service with cardiology as a consult. He also requested a heparin drip be started for the patient. Patient is happy and agreeable with this plan. 21:58 Dr. Monteiro accepted for admission. - Medical Records Medical records reviewed: Yes I reviewed the patient's medical records. - Lab Data Lab results reviewed: Yes I reviewed the patient's lab results. Result diagrams: 05/30/16 20:25 05/30/16 20:25 Lab Results 05/30/16 05/30/16 05/30/16 Range/Units 20:25 20:25 20:25 WBC 5.5 (4.3-11.1) K/mcL RBC 5.11 (4.19-5.50) M/mcL Hgb 15.4 (12.9-16.9) g/dL Hct 44.9 (37.5-50.1) % MCV 87.9 (83.0-100.0) fL MCH 30.1 (28.0-33.3) pg MCHC 34.3 (31.6-35.5) g/dL RDW 12.1 (11.5-14.5) % Plt Count 282 (140-400) K/mcL MPV 8.7 L (9.4-12.4) fL Immature Gran % 0.2 (0-4) % Seg Neutrophils % 38.9 % Lymphocytes % 51.5 % Monocytes % 6.8 % Eosinophils % 2.2 % Basophils % 0.4 % Neutrophils # 2.1 (1.6-8.9) K/mcL Lymphocytes # 2.8 (0.6-4.6) K/mcL Monocytes # 0.4 (0.0-1.3) K/mcL Eosinophils # 0.1 (0.0-0.6) K/mcL Basophils # 0.0 (0.0-0.2) K/mcL PT 11.0 (9.4-12.1) Seconds INR 1.0 APTT 32.9 (26.0-36.0) Seconds Sodium 144 (136-145) mEq/L Potassium 3.9 (3.5-4.5) mEq/L Chloride 106 (98-109) mEq/L Carbon Dioxide 28 (19-29) mEq/L BUN 14 (8-26) mg/dL Creatinine 1.05 (0.72-1.25) mg/dL Est GFR ( Amer) > 60 (> 60) Est GFR (Non-Af Amer) > 60 (> 60) BUN/Creatinine Ratio 13 (6-26) Glucose 95 (70-99) mg/dL Calculated Osmolality 298 (280-300) Calcium 10.0 (8.6-10.8) mg/dL Troponin I (0-0.03) ng/mL TSH 2.303 (0.350-4.840) mcIU/mL 02/03/17 Range/Units 20:25 WBC (4.3-11.1) K/mcL RBC (4.19-5.50) M/mcL Hgb (12.9-16.9) g/dL Hct (37.5-50.1) % MCV (83.0-100.0) fL MCH (28.0-33.3) pg MCHC (31.6-35.5) g/dL RDW (11.5-14.5) % Plt Count (140-400) K/mcL MPV (9.4-12.4) fL Immature Gran % (0-4) % Seg Neutrophils % % Lymphocytes % % Monocytes % % Eosinophils % % Basophils % % Neutrophils # (1.6-8.9) K/mcL Lymphocytes # (0.6-4.6) K/mcL Monocytes # (0.0-1.3) K/mcL Eosinophils # (0.0-0.6) K/mcL Basophils # (0.0-0.2) K/mcL PT (9.4-12.1) Seconds INR APTT (26.0-36.0) Seconds Sodium (136-145) mEq/L Potassium (3.5-4.5) mEq/L Chloride (98-109) mEq/L Carbon Dioxide (19-29) mEq/L BUN (8-26) mg/dL Creatinine (0.72-1.25) mg/dL Est GFR ( Amer) (> 60) Est GFR (Non-Af Amer) (> 60) BUN/Creatinine Ratio (6-26) Glucose (70-99) mg/dL Calculated Osmolality (280-300) Calcium (8.6-10.8) mg/dL Troponin I 0.01 (0-0.03) ng/mL TSH (0.350-4.840) mcIU/mL - Radiology Data Radiology results reviewed: Yes I reviewed the patient's radiology results. Chest X-Ray 05/30/16 20:11 IMPRESSION: No acute process. D/ / Grupo Parker MD / Grupo Parker MD Interpreting Provider: Grupo Parker MD - EKG Data EKG attestation: Yes I reviewed and interpreted this EKG. EKG results narrative: May 30 2016 at 20:11. A fib RVR rate 138. No acute ST elevation or depression. May 30 2016 at 21:32. A. fib. Rate 89. QTC 480. No acute ST elevation Ricardo - Ricardo Situation: Demographics, MOA Background: Presenting Complaint, Relevant PMH, Meds, & Allergies Assessment: Vital Signs, Course and respsone to treatment, Exam Concerns, Patient/Family Expectation, Pertinant Lab Results, Outstanding Labs Recommendation: Barrier(s) to disposition, Recommendation based on pending studies, treatments, or consults SJason Report Given to: Cayetano Silva Repor Time: 21:59
[2016-05-30 20:36] LABS: Activated Partial Thrombo Time 32.9 Seconds (26.0-36.0)
[2016-05-30 20:42] LABS: BUN/Creatinine Ratio 13 (6-26); Blood Urea Nitrogen 14 mg/dL (8-26); Carbon Dioxide 28 mEq/L (19-29); Chloride 106 mEq/L (98-109); Glucose 95 mg/dL (70-99); Osmolality,Calculated 298 (280-300); Potassium 3.9 mEq/L (3.5-4.5); Sodium 144 mEq/L (136-145); eGFR For African Americans > 60 (> 60); eGFR For Non-African Americans > 60 (> 60)
[2016-05-30] MEDS ORDERED: 0.9 % Sodium Chloride 1,000 ML IVC ONE (20:55)
[2016-05-30 21:02] LABS: Thyroid Stimulating Hormone 2.303 mcIU/mL (0.350-4.840)
[2016-05-30] MEDS ORDERED: *HR* Heparin 5,000 UNIT/ML VIAL IVP ONE (21:57)
[2016-05-30] MEDS ORDERED: Heparin 25,000 UNIT/500 ML D5W 25,000 UNIT/500 ML MLS IVC SCH (22:00)
[2016-05-31] MEDS ORDERED: *HR* Morphine 2 MG/ML SYRINGE IVP PRN (00:17)
[2016-05-31] MEDS ORDERED: Naloxone 0.4 MG/ML INJ IVP PRN (00:17)
[2016-05-31] MEDS ORDERED: *HR* LORazepam 0.5 MG TABLET PO PRN (00:22)
--- NOTE | 2016-05-31 00:32 | Internal Med History&Physical ---
Date of Encounter: 05/31/16 Time of Encounter: 00:23 Assessment and Plan (1) Atrial fibrillation with RVR Current visit: No Status: Resolved 1. Will place on IV Cardizem drip. 2. Correct hypokalemia. 3. Check Magnesium level. 4. Monitor electrolytes and correct as necessary. 5. Consult cardiology for guidance regarding oral regimen. 6. Will order ECHO as I do not see a recent ECHO. 7. Heparin gtt. 8. Cycle serial troponins and EKG's. (2) DVT prophylaxis Current visit: Yes Status: Acute 1. On heparin gtt. Internal Medicine - H&P: HPI Chief complaint: atrial fibrillation Admitted From: Emergency Dept Plans for Post Hospital Care: Home History of present illness: Mr. Cintron is a 46 year old male who presented to the ER today with complaints of palpitations and racing heartbeats. Symptoms started this evening when he and his were walking to a high school basketball game, and he noted the sudden onset of symptoms. Patient has a known history of recurrent/paroxysmal atrial fibrillation, and he felt that he was back in atrial fibrillation. He therefore came to ER where his suspicion was confirmed. He received a Cardizem bolus and was admitted to the hospitalist service. Upon my assessment of the patient, patient is running in atrial fibrillation and heart rate runs between 90 and 130. He denies any chest pain, shortness of breath, fevers, cough, congestion, vomiting, or diarrhea. He does feel palpitations, however. He was just hospitalized less than a month ago for recurrent atrial fibrillation with rapid ventricular response. 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 Past Med Surg Social Fam HX - Past Medical History Attestation: Yes The following information was validated with the patient. Source: patient, old records reviewed Medical history: atrial fibrillation, GERD Psychiatric history: anxiety - Past Surgical History Surgical History: no surgical history - Social History Smoking Status: Never smoker Smokeless Tobacco Status: No Alcohol use: none Drug use: none Occupational status: employed Current living situation: Home, With Family Activity Level: Independent ambulation Recent Out of Country Travel Within the Last 8 Weeks: No - Family History Father Living Status: Hx Family Endocrine Disorder: Yes Mother Living Status: Still Living Hx Family Cardiac Disorders: Yes (atrial fibrillitation) Internal Medicine - H&P: Meds Aspirin [Ecotrin] 325 mg PO DAILY 05/05/16 [History] Diltiazem HCl [Cardizem] 120 mg PO DAILY 05/05/16 [History] LORazepam [Ativan] 0.5 mg PO BID PRN 05/05/16 [History] Atenolol [Tenormin] 25 mg PO DAILY #30 tablet 05/06/16 [Rx] Allergies acetaminophen [From Vicodin] Allergy (Verified 05/05/16 08:22) Nausea hydrocodone [From Vicodin] Allergy (Verified 05/05/16 08:22) Nausea - Constitutional Constitutional: no chills, no fever(s) - EENT Eyes: no blurry vision, no change in vision Ears: no ear pain, no tinnitus Nose, mouth and throat: no nasal congestion, no sinus pain, no sinus pressure, no sore throat - Cardiovascular Cardiovascular ROS IM: irregular heart rhythm, palpitations, no chest pain, no diaphoresis, no dyspnea, no dyspnea on exertion, no lightheadedness, no syncope - Respiratory Respiratory: no cough, no dyspnea, no hemoptysis - Gastrointestinal Gastrointestinal: no abdominal pain, no diarrhea, no vomiting - Genitourinary Genitourinary ROS male: no dysuria, no hematuria - Musculoskeletal Musculoskeletal ROS IM: no arthralgias, no back pain - Integumentary Integumentary IM: no rash, no jaundice - Neurological Neurological ROS: no dizziness, no focal weakness, no frequent falls, no headache(s) - Psychiatric Psychiatric: no anxiety, no depression - Endocrine Endocrine IM: no cold intolerance, no heat intolerance - Hematologic/Lymphatic Hematologic/Lymphatic: no easy bruising, no lymphadenopathy - Allergic/Immunologic Allergic/Immunologic: no wheezing, no GI upset with certain foods - Constitutional Vitals: Temp Pulse Resp BP Pulse Ox 98.5 F 113 16 106/77 98 05/30/16 23:16 05/30/16 23:16 05/30/16 23:16 05/30/16 23:16 05/30/16 23:16 General appearance: Present: cooperative, A&O X 3, pleasant, no acute distress, answers questions appropriately - Head Head exam: Present: atraumatic, normal inspection - Eye Eye exam: Present: EOMI, normal appearance, PERRL. Absent: scleral icterus Pupils: Present: normal accommodation - ENT ENT exam: Present: mucous membranes moist, normal exam, normal oropharynx - Neck Neck exam general surgery: Present: full ROM, supple. Absent: tenderness, thyromegaly - Expanded Neck Exam Neck exam: Absent: carotid bruit - Respiratory Respiratory exam: Present: CTAB. Absent: rales, rhonchi, wheezes - Cardiovascular Cardiovascular exam: Present: irregular rhythm, +S1, +S2, tachycardia (HR 110's) . Absent: diastolic murmur, JVD, systolic murmur - GI/Abdominal GI/Abdominal exam: Present: soft. Absent: hepatomegaly, mass, splenomegaly, tenderness - Extremities Exam Extremities exam: Present: full ROM, warm, radial pulses palpable and symetrical. Absent: calf tenderness, joint swelling, pedal edema - Back Exam Back exam: Present: normal inspection. Absent: CVA tenderness (L), CVA tenderness (R) - Neurological Exam Neurological exam: Present: alert, CN II-XII intact, oriented X3, no focal deficits - Psychiatric Psychiatric exam: Present: normal affect, normal mood - Skin Skin exam: Present: dry, warm. Absent: rash Internal Med - H&P Results - Labs CBC & Chem 7: 05/30/16 20:25 05/30/16 20:25 - EKG Data -: EKG Interpreted by Myself - EKG Data Prior EKG available for review: yes When compared to previous EKG: there are significant changes EKG comments: 05/31/16 00:36 atrial fibrillation w RVR; prior EKG normal sinus rhythm - Diagnostic Studies Chest x-ray Status: image reviewed by me (negative) - VTE Reasons for not Prescribing Prophylaxis: Not indicated-Anticoagulated or INR therapeutic
[2016-05-31 06:20] LABS: Basophils % 0.4 %; Eosinophils # 0.2 K/mcL (0.0-0.6); Eosinophils % 3.4 %; Hematocrit 41.9 % (37.5-50.1); Hemoglobin 14.6 g/dL (12.9-16.9); Immature Granulocytes % 0.4 % (0-4); Lymphocytes # 2.1 K/mcL (0.6-4.6); Lymphocytes % 44.6 %; Mean Corpuscular HGB Conc 34.8 g/dL (31.6-35.5); Mean Corpuscular Hemoglobin 30.7 pg (28.0-33.3); Mean Platelet Volume 8.9 fL (9.4-12.4); Monocytes # 0.4 K/mcL (0.0-1.3); Monocytes % 8.7 %; Platelet Count 252 K/mcL (140-400); Red Blood Count 4.76 M/mcL (4.19-5.50); Red Cell Distribution Width 12.3 % (11.5-14.5); Segmented Neutrophils % 42.5 %
[2016-05-31 06:39] LABS: Alanine Aminotransferase 16 Units/L (0-55); Albumin 3.3 g/dL (3.5-5.0); Albumin/Globulin Ratio 1.4 (1.1-2.2); Alkaline Phosphatase 39 Units/L (38-126); Aspartate Amino Transferase 19 Units/L (5-34); BUN/Creatinine Ratio 16 (6-26); Bilirubin,Total 0.6 mg/dL (0.2-1.2); Blood Urea Nitrogen 16 mg/dL (8-26); Calcium 8.9 mg/dL (8.6-10.8); Carbon Dioxide 23 mEq/L (19-29); Chloride 109 mEq/L (98-109); Chol/HDL Ratio 4.4 (0-4.9); Cholesterol 209 mg/dL (< 200); Globulin 2.4 g/dL (2.4-3.5); Glucose 94 mg/dL (70-99); HDL Cholesterol 47 mg/dL (40-59); LDL Cholesterol,Calculated 144 mg/dL (0-99); Magnesium 2.1 mg/dL (1.6-2.6); Osmolality,Calculated 293 (280-300); Sodium 141 mEq/L (136-145); Total Protein 5.7 g/dL (6.0-8.3); Triglycerides 92 mg/dL (< 150); eGFR For African Americans > 60 (> 60); eGFR For Non-African Americans > 60 (> 60)
[2016-05-31] MEDS ORDERED: Aspirin Enteric Coated 325 MG Tablet PO SCH (09:00)
[2016-05-31] MEDS ORDERED: Amiodarone Premix 360 MG/200 ML BAG IVC ONE (09:54)
[2016-05-31] MEDS ORDERED: Amiodarone Premix 150 MG/100 ML BAG IVPB ONE (09:54)
--- NOTE | 2016-05-31 09:55 | Event Note ---
Date of Encounter: 05/31/16 Time of Encounter: 09:46 46/M Cardiology : Dr Fitz Tesfaye has ongoing Afib for more than 8 years. [id number]: 0, scheduled to get Ablation at [facility]. admitted with Afib with RVR. On Heparin drip along with cardizem. Started in ER. On Cardizem drip: Rate is very well controlled. Vitals : stable On examination : Examination of eyes, ears, oral cavity and cervical area did not reveal any abnormality. Examination of the heart was within normal limits. A entry is bilaterally equal. His abdomen is benign. Neurological examination was within normal limits. Assessment: Recurrent atrial fibrillation with [id number] score 0 plan: stop heparin if cardiology agree he is in sinus and rate is well controlled. will switch to oral cardizem. possible d/c tomorrow
[2016-05-31] MEDS ORDERED: Amiodarone Premix 360 MG/200 ML BAG IVC SCH (10:00)
--- NOTE | 2016-05-31 10:44 | Cardiology Consult Note ---
<Getachew Bell R - Last Filed: 05/31/16 10:42> Date of Encounter: 05/31/16 Time of Encounter: 10:42 Assessment and Plan (1) Paroxysmal atrial fibrillation with RVR Current Visit: Yes Status: Acute Known hx of PAF. Presented in A-Fib with RVR. Normal TSH and electrolytes. Failed rythmol in the past. Recent visit with Dr. Carson discussed antiarrythmic and ablation options. Pt wishes to see Dr. De La Vega at [facility] for ablation referral. Pt has since converted back to SR on cardizem gtt 2.5mg/hr. Stopped gtt. Discussed with Dr. Schulz. Start Amiodarone PO 400mg BID with plans to decrease to 200mg BID tomorrow. Plan for short term use. CHADSVASC 0, but since starting Amio and with his PAF Dr. Schulz recommends anticoagulation. Continue heparin gtt for now. Will castellano check Xarelto 20mg daily and if affordable start tonight. Will continue to follow. Discussion w patient/family: The assessment and plan as outlined above was discussed with the patient and/or family members who expressed understanding and agreement. All questions were answered. Thank you for involving us in the care of your patient. Please call with any questions. I will discuss all the above with Dr. Schulz and make changes as necessary. History of Present Illness Consult date: 05/31/16 Requesting physician: Ezequiel Hernandez Consult reason: A-Fib Chief complaint: palpitations History of present illness: Mr. Cintron is a 46 year old male with PMH significant for PAF who presents to the ED with complaints of palpitations that started yesterday. Initial episode of AFib was in 2006. He has reportedly failed rythmol in the past. He was hospitalized last month for PAF episode, followed up with Dr. Fitz Carson who discussed another antiarrhythmic and also the possibility of an ablation. Pt has since requested referral to [facility] to be seen there for an ablation. He denies chest pain or dyspnea. Currently on Cardizem gtt at 2.5mg/hr. Has now converted to SR. Has previously not been anticoagulated since CHADSVASC is 0. Prior CV testing includes: TTE 09/13/14: LVEF 45%, mild global hypokinesis, no significant valvular dysfunction, mild LVDD St. Echocardiogram 10/31/14: Baseline EF 50%. Normal treadmill stress echocardiogram. Exercise time=12 minutes, achieved 13 METs. Past Med Surg Social Fam HX - Past Medical History Medical history: atrial fibrillation, GERD Psychiatric history: anxiety - Past Surgical History Surgical History: no surgical history - Social History Smoking Status: Never smoker Smokeless Tobacco Status: No Alcohol use: none Drug use: none - Family History Father Living Status: Hx Family Endocrine Disorder: Yes Mother Living Status: Still Living Hx Family Cardiac Disorders: Yes (atrial fibrillitation) Medications and Allergies Aspirin [Ecotrin] 325 mg PO DAILY 05/05/16 [History] Diltiazem HCl [Cardizem] 120 mg PO DAILY 05/05/16 [History] LORazepam [Ativan] 0.5 mg PO BID PRN 05/05/16 [History] Atenolol [Tenormin] 25 mg PO DAILY #30 tablet 05/06/16 [Rx] Allergies acetaminophen [From Vicodin] Allergy (Verified 05/05/16 08:22) Nausea hydrocodone [From Vicodin] Allergy (Verified 05/05/16 08:22) Nausea All Systems Review: A 10-system review of systems was performed and is negative for pertinent findings except as documented above in the HPI. - Cardiovascular Cardiovascular: palpitations Physical Examination Vital Signs, Last 4 Hours Temp Pulse Resp BP Pulse Ox 05/31/16 10:00 82 16 90/60 96 05/31/16 08:07 97.8 F 104 16 98/60 96 General: Conversant, No Apparent Distress HEENT: Atraumatic, Normocephaly, Mucus Membranes Moist Neck: No JVD, Normal carotid pulses Cardiac: Reg Rate and Rhythm, Normal S1 and S2, No Murmur Lungs: Normal Breath Sounds, No Wheeze, Rales, Rhonchi Neuro: Alert and responsive, No focal deficits noted Abdomen: Soft, Non-Tender Skin: No rashes noted on visualized skin Musculoskeletal: No Chest Wall Tenderness Extremities: No Clubbing, No Cyanosis, No Edema, Normal Pulses Results 05/31/16 05:26 05/31/16 05:56 Lab Results 05/31/16 05/31/16 05/31/16 00:47 05:26 05:26 WBC 4.7 Hgb 14.6 Hct 41.9 Plt Count 252 APTT 71.9 H D Sodium Potassium Chloride Carbon Dioxide BUN Creatinine Glucose Calcium Magnesium 2.0 Total Bilirubin AST ALT Alkaline Phosphatase Troponin I 05/31/16 05/31/16 05:26 05:56 WBC Hgb Hct Plt Count APTT Sodium 141 Potassium 4.0 Chloride 109 Carbon Dioxide 23 BUN 16 Creatinine 1.01 Glucose 94 Calcium 8.9 Magnesium 2.1 Total Bilirubin 0.6 AST 19 ALT 16 Alkaline Phosphatase 39 Troponin I 0.00 Short CBC 05/31/16 05/30/16 Range/Units 05:26 20:25 WBC 4.7 5.5 (4.3-11.1) K/mcL Hgb 14.6 15.4 (12.9-16.9) g/dL Hct 41.9 44.9 (37.5-50.1) % Plt Count 252 282 (140-400) K/mcL Neutrophils # 2.0 2.1 (1.6-8.9) K/mcL BMP 05/31/16 05/30/16 Range/Units 05:56 20:25 Sodium 141 144 (136-145) mEq/L Potassium 4.0 3.9 (3.5-4.5) mEq/L Chloride 109 106 (98-109) mEq/L Carbon Dioxide 23 28 (19-29) mEq/L BUN 16 14 (8-26) mg/dL Creatinine 1.01 1.05 (0.72-1.25) mg/dL Glucose 94 95 (70-99) mg/dL Calcium 8.9 10.0 (8.6-10.8) mg/dL Cardiac Enzymes 05/31/16 05/30/16 Range/Units 05:26 20:25 Troponin I 0.00 0.01 (0-0.03) ng/mL Liver Function 05/31/16 Range/Units 05:56 Total Bilirubin 0.6 (0.2-1.2) mg/dL AST 19 (5-34) Units/L ALT 16 (0-55) Units/L Alkaline Phosphatase 39 (38-126) Units/L Albumin 3.3 L (3.5-5.0) g/dL Impressions Chest X-Ray 05/30/16 20:11 IMPRESSION: No acute process. D/ / Grupo Parker MD / Grupo Parker MD Interpreting Provider: Grupo Parker MD Active Medications Amiodarone HCl (Cordarone) 400 mg PO BID SCOOTER Stop: 11/30/16 10:46 Aspirin (Aspirin Ec) 325 mg PO DAILY SCOOTER Stop: 11/30/16 09:01 Last Admin: 05/31/16 10:02 Dose: 325 mg Heparin Sodium/Dextrose (Heparin 25,000 Unit/500 Ml D5w) 25,000 unit in 500 mls @ 18.507 mls/hr IVC .Q24H SCOOTER; 12 UNIT/KG/HR PRN Reason: Protocol Stop: 11/29/16 22:01 Last Titration: 05/31/16 06:54 Dose: 12 unit/kg/hr, 18.507 mls/hr Lorazepam (Ativan) 0.5 mg PO BID PRN PRN Reason: Anxiety Stop: 11/30/16 00:23 Morphine Sulfate (Morphine Sulfate) 1 mg IVP Q3H PRN PRN Reason: Chest Pain Stop: 11/30/16 00:18 Naloxone HCl (Narcan) 0.4 mg IVP Q2MIN PRN PRN Reason: Opioid Reversal Stop: 11/30/16 00:18 - Imaging and Cardiology Chest Xray: report reviewed Echo: report reviewed Consult Discharge Plan - Plan Referrals: Mark Norwood DO [Primary Care Provider] - <Chai Schulz - Last Filed: 05/31/16 11:14> Date of Encounter: 05/31/16 Assessment and Plan Discussion w patient/family: The assessment and plan as outlined above was discussed with the patient and/or family members who expressed understanding and agreement. All questions were answered. Thank you for involving us in the care of your patient. Please call with any questions. History of Present Illness History of present illness: Mr. Cintron is a 46 year old male All Systems Review: A 10-system review of systems was performed and is negative for pertinent findings except as documented above in the HPI. Physical Examination Vital Signs, Last 4 Hours Temp Pulse Resp BP Pulse Ox 05/31/16 10:00 82 16 90/60 96 05/31/16 08:07 97.8 F 104 16 98/60 96 Results 05/31/16 05:26 05/31/16 05:56 Lab Results 05/31/16 05/31/16 05/31/16 00:47 05:26 05:26 WBC 4.7 Hgb 14.6 Hct 41.9 Plt Count 252 APTT 71.9 H D Sodium Potassium Chloride Carbon Dioxide BUN Creatinine Glucose Calcium Magnesium 2.0 Total Bilirubin AST ALT Alkaline Phosphatase Troponin I 05/31/16 05/31/16 05:26 05:56 WBC Hgb Hct Plt Count APTT Sodium 141 Potassium 4.0 Chloride 109 Carbon Dioxide 23 BUN 16 Creatinine 1.01 Glucose 94 Calcium 8.9 Magnesium 2.1 Total Bilirubin 0.6 AST 19 ALT 16 Alkaline Phosphatase 39 Troponin I 0.00 - Attending Attestation I examined this patient and my medical decision-making was reviewed with the PEN RIDER/PA/Advanced Practice Nurse/Resident Physician. I agree with the documented findings, disposition and treatment plan as described except to the extent set forth below. Briefly: PAF , comes on with stress, is being evaluated for possible ablation Knows when he is in afib, no cp, syncope, sob vss JVD: 6-7 cm chest clear CVS: now RRR PAF: now converted to NSR Plan; will start PO amio will check cost of Xarelto (though CHADSVASC is low , PAF has a higher risk of CVA ) , if not approved; will use Full dose ASA Echo possible d/c in am ambulate pt is making his own appt for possible ablation Thanks
--- NOTE | 2016-05-31 11:23 | ECHO - Doppler Report ---
Echocardiogram Name: Jesse Cintron Date of Study: 05/31/2016 Date: 1970 Ht: 68.0 in Medical Record#: [id number] Age: 46 Wt: 177.0 lb Gender: Male BSA: 1.94 Order #: [id number] Location: [facility] Room #: [id number] Reading Physician: Wu Quan DO, KI, LUCA SANTOS Band Saw Operator: MIKE KaurT Ordering Physician: Ezequiel Hernandez MD Primary Physician: Cedric Norwood DO Indications: Atrial Fibrillation Impressions: LVEF 55-60%. Normal LV chamber size, wall thickness and function. Mild left ventricular diastolic dysfunction. Normal right ventricular structure and function. No evidence of pulmonary hypertension. No significant valvular dysfunction. Left Ventricular Wall Motion: Rest Echo Findings All wall segments showed normal motion. Findings: Study Quality * Technically adequate exam. ECG Findings * Normal sinus rhythm. Left Ventricle * LVEF 55-60%. * Normal LV chamber size, wall thickness and function. * Mild left ventricular diastolic dysfunction. Right Ventricle * Normal right ventricular structure and function. Left Atrium * Mildly dilated left atrium. Right Atrium * Normal right atrial size. Interatrial Septum * No evidence of PFO by color Doppler. Aortic Valve * Trileaflet aortic valve with normal function. * No aortic regurgitation. * No aortic stenosis. Mitral Valve * Normal mitral valve structure and function. * No mitral regurgitation. * No mitral stenosis. Tricuspid Valve * Normal tricuspid valve structure and function. * Trace tricuspid regurgitation. * No evidence of pulmonary hypertension. Pulmonic Valve * Normal pulmonic valve structure and function. * No pulmonic regurgitation. Aorta * Normally sized aortic root. Pericardium * The pericardium appears normal. IVC * Normal IVC dimensions and inspiratory collapse. Pulmonary Artery * Normal visualized portions of the main pulmonary artery. History Family History of CAD 09-19-2014 a Previous Echo was performed. Measurements: BP: 95/ 62 2D Normal Values IVSd: .80 cm 0.6 - 1.0 cm LVIDd: 5.00 cm 3.7 - 5.6 cm LVPWd: .90 cm 0.6 - 1.1 cm LVIDs: 3.10 cm 1.5 - 3.6 cm AO: 2.50 cm < 4.0 cm LA: 3.30 cm 2.0 - 4.0cm %FS: 38.00 cm >25 % LA volume: 42 Mitral Valve Peak E:.37 m/sec Peak A:.44 m/sec E/A Ratio:0.9 Peak E' Lat Deshawn:9.07 cm/s Peak E' Med Deshawn:8.87 cm/s E/E' Lat Ratio:4.1 E/E' Med Ratio:4.2 Tricuspid Valve TV Regurg Peak Grad: 13.00mmHg TV Regurg Peak Deshawn: 1.80m/sec Updated by Wu Quan DO, FACTonio, TOM, LUCA on 05/31/2016 11:18:22 AM electronically signed on 05/31/2016 11:18:39 AM with status of Final Wall Motion Lujan: 1=Normal, 2=Hypokinesis, 3=Akinesis, 4=Dyskinesis, 5=Aneurysmal, 6=Hyperkinetic, X=Not Visualized (Blank)=Missing
[2016-05-31] MEDS: *HR* Amiodarone 200 MG TABLET PO SCH ×2 (15:15→21:04)
[2016-05-31] MEDS ORDERED: *HR* Rivaroxaban 10 MG TABLET PO SCH (17:00)
[2016-06-01 05:44] LABS: Basophils % 0.2 %; Eosinophils # 0.2 K/mcL (0.0-0.6); Hematocrit 40.4 % (37.5-50.1); Immature Granulocytes % 0.2 % (0-4); Lymphocytes # 1.9 K/mcL (0.6-4.6); Lymphocytes % 44.6 %; Mean Corpuscular HGB Conc 34.7 g/dL (31.6-35.5); Mean Corpuscular Hemoglobin 30.8 pg (28.0-33.3); Mean Platelet Volume 8.7 fL (9.4-12.4); Monocytes # 0.3 K/mcL (0.0-1.3); Neutrophils # 1.9 K/mcL (1.6-8.9); Platelet Count 214 K/mcL (140-400); Red Blood Count 4.54 M/mcL (4.19-5.50); Red Cell Distribution Width 12.2 % (11.5-14.5)
[2016-06-01 06:04] LABS: Alanine Aminotransferase 17 Units/L (0-55); Albumin 3.2 g/dL (3.5-5.0); Albumin/Globulin Ratio 1.2 (1.1-2.2); Alkaline Phosphatase 40 Units/L (38-126); Aspartate Amino Transferase 17 Units/L (5-34); BUN/Creatinine Ratio 18 (6-26); Bilirubin,Total 0.5 mg/dL (0.2-1.2); Blood Urea Nitrogen 19 mg/dL (8-26); Carbon Dioxide 27 mEq/L (19-29); Chloride 108 mEq/L (98-109); Globulin 2.6 g/dL (2.4-3.5); Glucose 101 mg/dL (70-99); Osmolality,Calculated 294 (280-300); Potassium 3.9 mEq/L (3.5-4.5); Sodium 141 mEq/L (136-145); Total Protein 5.8 g/dL (6.0-8.3); eGFR For African Americans > 60 (> 60); eGFR For Non-African Americans > 60 (> 60)
[2016-06-01 07:40] VITALS: BP 100/69
--- NOTE | 2016-06-01 08:21 | Discharge Summary ---
Date of Encounter: 06/01/16 Time of Encounter: 08:17 - Discharge Diagnosis (1) Paroxysmal atrial fibrillation with RVR Priority: Primary Status: Acute (2) PAF (paroxysmal atrial fibrillation) Priority: Primary Status: Chronic (3) GERD (gastroesophageal reflux disease) Priority: Secondary Status: Chronic Qualifiers: Esophagitis presence: esophagitis presence not specified Qualified Code(s) : K21.9 - Gastro-esophageal reflux disease without esophagitis - Discharge Medications Prescriptions: Amiodarone [Cordarone] 200 mg PO BID #60 tablet Rivaroxaban [Xarelto] 20 mg PO 1700 #30 tablet Home Medications: Aspirin [Ecotrin] 325 mg PO DAILY 05/05/16 [History] LORazepam [Ativan] 0.5 mg PO BID PRN 05/05/16 [History] Amiodarone [Cordarone] 200 mg PO BID #60 tablet 06/01/16 [Rx] Rivaroxaban [Xarelto] 20 mg PO 1700 #30 tablet 06/01/16 [Rx] Allergies/Adverse Reactions: Allergies acetaminophen [From Vicodin] Allergy (Verified 05/05/16 08:22) Nausea hydrocodone [From Vicodin] Allergy (Verified 05/05/16 08:22) Nausea Procedures/tests Complete & Pending: Procedures Performed prior 72 hours Category Date Time Status ECG 12 lead ECG [ECG] AM 0600 Y 05/31/16 06:00 Ordered EV echocardiogram Routine Y 05/31/16 00:17 Completed Date of admission: 05/30/16 21:59 Primary care physician: Mark Norwood, Consults: 05/31/16 00:19 Consult to Physician [CONS] Routine Consulting Provider: Chai Schulz Reason for Consult: recurrent atrial fib Call Completed: No Discharging clinician: Bo Cameron - Patient Status Disposition: Home, Self-Care Condition: Good Functional capacity at discharge: independent ambulation Overall status at discharge: patient is progressing back to baseline - Discharge Instructions Follow Up With: Mark Norwood DO [Primary Care Provider] - - Diet and Activity Activity: increase activity as tolerated Diet: low fat, low cholesterol Interval History: Mr. Cintron is a 46 year old male who presented to the ER today with complaints of palpitations and racing heartbeats. Symptoms started this evening when he and his were walking to a high school basketball game, and he noted the sudden onset of symptoms. Patient has a known history of recurrent/paroxysmal atrial fibrillation, and he felt that he was back in atrial fibrillation. He therefore came to ER where his suspicion was confirmed. He received a Cardizem bolus and was admitted to the hospitalist service. Prior CV testing includes: TTE 09/13/14: LVEF 45%, mild global hypokinesis, no significant valvular dysfunction, mild LVDD St. Echocardiogram 10/31/14: Baseline EF 50%. Normal treadmill stress echocardiogram. Exercise time=12 minutes, achieved 13 METs. Hospital course: patient was hospitalized. seen by cardiology. following is note from cardiology consult. the reason for copy and paste this note in d/c summary to get idea about cardiology plan. "Known hx of PAF. Presented in A-Fib with RVR. Normal TSH and electrolytes. Failed rythmol in the past. Recent visit with Dr. Carson discussed antiarrythmic and ablation options. Pt wishes to see Dr. De La Vega at [facility] for ablation referral. Pt has since converted back to SR on cardizem gtt 2.5mg/hr. Stopped gtt. Discussed with Dr. Schulz. Start Amiodarone PO 400mg BID with plans to decrease to 200mg BID tomorrow. Plan for short term use. CHADSVASC 0, but since starting Amio and with his PAF Dr. Schulz recommends anticoagulation. Continue heparin gtt for now. Will castellano check Xarelto 20mg daily and if affordable start tonight. Will continue to follow." home today with Amiodorone and Xarelto ( prescriptions given by cardio to patient) . Hold cardizem and BB above recommendation is as per cardiology. follow with cardio follow up with PCP - Time Spent with Patient Total time spent providing and/or coordinating discharge services: - Constitutional Vitals: Temp Pulse Resp BP Pulse Ox 97.8 F 61 16 100/69 98 06/01/16 07:38 06/01/16 07:38 06/01/16 07:38 06/01/16 07:38 06/01/16 07:38 General appearance: Present: cooperative, A&O X 3, pleasant, no acute distress, answers questions appropriately - Head Head exam: Present: atraumatic, normocephalic - Eye Eye exam: Present: PERRL, conjuntiva pink, sclera anicteric Pupils: Present: PERRL - Neck Neck exam general surgery: Present: supple, trachea midline. Absent: lymphadenopathy - Respiratory Respiratory exam: Present: CTAB. Absent: accessory muscle use, rales, rhonchi, wheezes - Cardiovascular Cardiovascular exam: Present: RRR, +S1, +S2. Absent: diastolic murmur, gallop, rubs, systolic murmur - GI/Abdominal GI/Abdominal exam: Present: normal bowel sounds, soft, no peritoneal signs. Absent: distended, tenderness - Extremities Exam Extremities exam: Present: warm, radial pulses palpable and symetrical. Absent : calf tenderness, cyanotic, pedal edema - Neurological Exam Neurological exam: Present: CN II-XII intact, oriented X3, no focal deficits. Absent: pronater drift, facial droop, speech deficit - Skin Skin exam: Present: dry, intact - VTE Reasons for not Prescribing Prophylaxis: Not indicated-Anticoagulated or INR therapeutic
[2016-06-01] MEDS ORDERED: *HR* Amiodarone 200 MG TABLET PO SCH (09:00)
--- NOTE | 2016-06-01 09:12 | Cardiology Progress Note ---
Date of Encounter: 06/01/16 Time of Encounter: 09:09 Assessment and Plan (1) Paroxysmal atrial fibrillation with RVR Current Visit: Yes Status: Acute Known hx of PAF. Presented in A-Fib with RVR. Normal TSH and electrolytes. Failed rythmol in the past. Recent visit with Dr. Carson discussed antiarrythmic and ablation options. Pt wishes to see Dr. De La Vega at [facility] for ablation referral. Pt has since converted back to SR on cardizem gtt 2.5mg/hr. Stopped gtt. Discussed with Dr. Schulz. Started Amiodarone PO 400mg BID yesterday, decrease to 200mg BID today. Plan for short term use. CHADSVASC 0, but since starting Amio and with his PAF Dr. Schulz recommends anticoagulation with Xarelto 20mg daily. Maintaining SR. BP has been borderline, will not restart Atenolol or Cardizem at this time per Dr. Schulz. Follow-up with [facility] electrophysiology per pt request to discuss possible ablation. Cardiology signing off. Reconsult PRN. Discussion w patient/family: The assessment and plan as outlined above was discussed with the patient and/or family members who expressed understanding and agreement. All questions were answered. Thank you for involving us in the care of your patient. Please call with any questions. I will discuss all the above with Dr. Schulz and make changes as necessary. Subjective Principal diagnosis: PAF Interval history: 12 hour tele AVG HR 67, SR. Echo resulted EF 55-60%. Pt denies any complaints this AM. Objective Vital Signs, Last 4 Hours Temp Pulse Resp BP Pulse Ox 06/01/16 07:38 97.8 F 61 16 100/69 98 Vital Signs Temp Pulse Resp BP Pulse Ox 06/01/16 07:38 97.8 F 61 16 100/69 98 06/01/16 04:00 97.8 F 68 16 102/76 97 06/01/16 01:00 97.6 F 69 16 100/67 98 05/31/16 21:00 97.4 F L 77 16 108/68 97 05/31/16 20:50 95 05/31/16 17:55 98.1 F 84 16 112/80 95 05/31/16 15:17 98.1 F 84 16 104/67 95 05/31/16 11:52 97.8 F 78 16 92/65 98 05/31/16 10:00 82 16 90/60 96 Intake and Output 05/31/16 06/01/16 06/01/16 23:59 07:59 15:59 Intake Total 80.2 / 80.2 0 / 0 Balance 80.2 / 80.2 0 / 0 Intake: IV Fluids 80.2 / 80.2 Heparin 25,000 UNIT/500 80.2 / 80.2 ML D5W 25,000 unit In 500 ml @ 12 UNIT/KG/HR 18. 507 mls/hr IVC .Q24H [facility] Rx#:[id number] Oral 0 / 0 0 / 0 Other: # Voids 0 1 Weight 81.5 kg Patient Weight 06/01/16 23:59 Weight 81.5 kg General: Conversant, No Apparent Distress HEENT: Atraumatic, Normocephaly, Mucus Membranes Moist Neck: No JVD, Normal carotid pulses Cardiac: Reg Rate and Rhythm, Normal S1 and S2, No Murmur Lungs: Normal Breath Sounds, No Wheeze, Rales, Rhonchi Neuro: Alert and responsive, No focal deficits noted Abdomen: Soft, Non-Tender Skin: No rashes noted on visualized skin Musculoskeletal: No Chest Wall Tenderness Extremities: No Clubbing, No Cyanosis, No Edema, Normal Pulses Results 06/01/16 05:31 06/01/16 05:31 Lab Results 05/31/16 05/31/16 06/01/16 11:57 11:57 05:31 WBC 4.3 Hgb 14.0 Hct 40.4 Plt Count 214 APTT 68.3 H Sodium Potassium Chloride Carbon Dioxide BUN Creatinine Glucose Calcium Total Bilirubin AST ALT Alkaline Phosphatase Troponin I 0.00 06/01/16 05:31 WBC Hgb Hct Plt Count APTT Sodium 141 Potassium 3.9 Chloride 108 Carbon Dioxide 27 BUN 19 Creatinine 1.06 Glucose 101 H Calcium 9.0 Total Bilirubin 0.5 AST 17 ALT 17 Alkaline Phosphatase 40 Troponin I Active Medications Amiodarone HCl (Cordarone) 200 mg PO BID SCOOTER Stop: 12/01/16 09:01 Lorazepam (Ativan) 0.5 mg PO BID PRN PRN Reason: Anxiety Stop: 11/30/16 00:23 Morphine Sulfate (Morphine Sulfate) 1 mg IVP Q3H PRN PRN Reason: Chest Pain Stop: 11/30/16 00:18 Naloxone HCl (Narcan) 0.4 mg IVP Q2MIN PRN PRN Reason: Opioid Reversal Stop: 11/30/16 00:18 Rivaroxaban (Xarelto) 20 mg PO 1700 SCOOTER Stop: 11/30/16 17:01 Last Admin: 05/31/16 17:48 Dose: 20 mg - Imaging and Cardiology Echo: report reviewed - EKG Interpretation EKG results cardiology: other (12 hour tele AVG HR 67, SR) - VTE Reasons for not Prescribing Prophylaxis: Not indicated-Anticoagulated or INR therapeutic Consult Discharge Plan - Plan Instructions: Atrial Fibrillation (DC) Additional Instructions: Follow-up appointments: If there is not an appointment listed below, please call your physician and schedule a follow-up appointment. If you have congestive heart failure and your symptoms return, make an appointment with your physician. Symptoms: If your condition changes or you experience any of the following symptoms, notify your physician immediately: Unusual or worsening pain, fever, persistent nausea and vomiting, bleeding, increase in swelling (especially in your legs), sudden weight gain, extreme dizziness, chest pain, increased drainage or redness from a wound or incision. Go to the emergency department if you experience a problem with breathing. Weights: If you have a history of swelling or shortness of breath, weigh yourself daily and notify your physician if you have a weight gain of two or more pounds in one day or 5 or more pounds in a week. If you experience any of the warning signs for stroke: Sudden numbness or weakness of the face, arm or leg; especially on one side of the body, sudden confusion, trouble speaking or understanding, sudden trouble seeing in one or both eyes, sudden trouble walking, dizziness, loss of balance or coordination, sudden sever headache with no cause; Call 911 or go to the emergency room. Stroke is a medical emergency. Some risk factors for stroke: Age, cigarette smoking, diabetes, excessive alcohol consumption, family history , high blood pressure, overweight, physical inactivity, prior stroke, heart attack, diagnosis of carotid artery stenosis or other artery disease. If you smoke, STOP: Smoking or tobacco use significantly increases your risk of heart and lung disease. Your chance of disease greatly increases if you continue to smoke. For more information, call the [employer] tobacco quit line for smoking cessation -NOW ( ) Referrals: Mark Norwood DO [Primary Care Provider] - Prescriptions: Amiodarone [Cordarone] 200 mg PO BID #60 tablet Rivaroxaban [Xarelto] 20 mg PO 1700 #30 tablet
--- NOTE | 2016-06-01 20:19 | Electrocardiograph Report ---
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
--- NOTE | 2016-06-01 20:21 | Electrocardiograph Report ---
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
== END 2016-06-01 11:30 | disposition home or self-care (01) ==
LOC: EMEROO 20:03 → 2NENU 20:03
PROVIDERS: ADMIT Internal Medicine; ATTEND Internal Medicine

== ENCOUNTER 2017-08-14 13:14 | Inpatient (IN) ==
[2017-08-14] MEDS ORDERED: 0.9 % Sodium Chloride 1,000 ML IVC ONE (13:36)
--- NOTE | 2017-08-14 13:37 | Emergency Department Note ---
Disposition Referrals: Mark Norwood DO [Primary Care Provider] - General Adult HPI - General Chief complaint: ED Arrhythmia/Palpitations Stated complaint: HEART OUT OF RYTHYM Time Seen by Provider: 08/14/17 13:20 Source: patient Limitations: no limitations Nursing Notes Reviewed: Yes Vital Signs Reviewed: Yes - History of Present Illness Pain Scale: 0 - Related Data Home Medications Medication Instructions Recorded Confirmed Aspirin [Ecotrin] 325 mg PO DAILY 05/05/16 05/30/16 LORazepam [Ativan] 0.5 mg PO BID PRN 05/05/16 05/30/16 Previous Rx's Medication Instructions Recorded Amiodarone [Cordarone] 200 mg PO BID #60 tablet 06/01/16 Rivaroxaban [Xarelto] 20 mg PO 1700 #30 tablet 06/01/16 Allergies Allergy/AdvReac Type Severity Reaction Status Date / Time acetaminophen [From Vicodin] Allergy Nausea Verified 08/21/16 06:03 hydrocodone [From Vicodin] Allergy Nausea Verified 08/21/16 06:03 Past Medical History - Past Medical History Medical history: Reports: atrial fibrillation, GERD Surgical history: Reports: no surgical history Psychiatric history: Reports: anxiety - Social History Smoking Status: Never smoker Smokeless Tobacco Status: No Alcohol use: Reports: none Drug use: Reports: none Physical Exam - General Limitations: no limitations General appearance: alert Course Vital Signs Temperature 98.3 F 08/14/17 13:17 Pulse Rate 83 08/14/17 13:17 Respiratory Rate 16 08/14/17 13:17 Blood Pressure 131/72 08/14/17 13:17 O2 Sat by Pulse Oximetry 97 08/14/17 13:17 Temperature 98.3 F 08/14/17 13:21 Pulse Rate 83 08/14/17 13:21 Respiratory Rate 16 08/14/17 13:21 Blood Pressure 131/72 08/14/17 13:21 O2 Sat by Pulse Oximetry 97 08/14/17 13:21 Oxygen Delivery Oxygen Delivery Room Air
[2017-08-14] MEDS ORDERED: Aspirin 325 MG TABLET PO ONE (13:56)
--- NOTE | 2017-08-14 13:57 | Emergency Department Note ---
Disposition Clinical Impression: Atrial fibrillation Qualifiers: Atrial fibrillation type: chronic Qualified Code(s): I48.2 - Chronic atrial fibrillation Disposition: Still a Patient Referrals: Mark Norwood DO [Primary Care Provider] - Forms: ED Satisfaction Letter General Adult HPI - General Chief complaint: ED Arrhythmia/Palpitations Stated complaint: HEART OUT OF RYTHYM Time Seen by Provider: 08/14/17 13:20 Source: patient Limitations: no limitations - History of Present Illness Pain Scale: 0 - Related Data Home Medications Medication Instructions Recorded Confirmed Aspirin [Ecotrin] 325 mg PO DAILY 05/05/16 05/30/16 LORazepam [Ativan] 0.5 mg PO BID PRN 05/05/16 05/30/16 Previous Rx's Medication Instructions Recorded Amiodarone [Cordarone] 200 mg PO BID #60 tablet 06/01/16 Rivaroxaban [Xarelto] 20 mg PO 1700 #30 tablet 06/01/16 Allergies Allergy/AdvReac Type Severity Reaction Status Date / Time acetaminophen [From Vicodin] Allergy Nausea Verified 08/21/16 06:03 hydrocodone [From Vicodin] Allergy Nausea Verified 08/21/16 06:03 Past Medical History - Past Medical History Medical history: Reports: atrial fibrillation, GERD Surgical history: Reports: no surgical history Psychiatric history: Reports: anxiety - Social History Smoking Status: Never smoker Smokeless Tobacco Status: No Alcohol use: Reports: none Drug use: Reports: none Physical Exam - General Limitations: no limitations General appearance: alert Course - Reevaluation(s) Reevaluation #1: Attestation note I examined this patient and my medical decision-making was reviewed with the emergency medicine resident. I agree with the documented findings, disposition and treatment plan as described except to the extent set forth below. Patient seen with emergency medicine resident Dr. Candice Durant, Please see a copy of his note for details of the H&P, ED evaluation, management and disposition. I have independently evaluated the patient and confirmed appropriate portions of the history and physical exam. Briefly: 47-year-old male history of atrial fibrillation with RVR presents with "heart out of rhythm" comes in with A. fib RVR in the 140s. After medical intervention knees now 109 feeling much better. ED workup is in progress. Disposition pending. Providing 20 minutes critical care services to this patient Time: 13:57 Vital Signs Temperature 98.3 F 08/14/17 13:17 Pulse Rate 83 08/14/17 13:17 Respiratory Rate 16 08/14/17 13:17 Blood Pressure 131/72 08/14/17 13:17 O2 Sat by Pulse Oximetry 97 08/14/17 13:17 Temperature 98.3 F 08/14/17 13:21 Pulse Rate 156 08/14/17 13:47 Respiratory Rate 27 08/14/17 13:47 Blood Pressure 128/87 08/14/17 13:47 O2 Sat by Pulse Oximetry 96 08/14/17 13:47 Oxygen Delivery Oxygen Delivery Room Air
[2017-08-14 14:07] LABS: Basophils % 0.2 %; Eosinophils # 0.1 K/mcL (0.0-0.6); Eosinophils % 2.2 %; Hematocrit 40.8 % (37.5-50.1); Hemoglobin 14.3 g/dL (12.9-16.9); Lymphocytes # 1.7 K/mcL (0.6-4.6); Lymphocytes % 40.5 %; Mean Corpuscular Hemoglobin 30.5 pg (28.0-33.3); Mean Platelet Volume 8.8 fL (9.4-12.4); Monocytes # 0.3 K/mcL (0.0-1.3); Monocytes % 8.2 %; Platelet Count 299 K/mcL (140-400); Red Blood Count 4.69 M/mcL (4.19-5.50); Red Cell Distribution Width 12.3 % (11.5-14.5); Segmented Neutrophils % 48.9 %
[2017-08-14 14:37] LABS: Troponin I < 0.03 ng/mL (< 0.04)
[2017-08-14 14:44] LABS: BUN/Creatinine Ratio 13 (6-26); Blood Urea Nitrogen 11 mg/dL (6-20); Calcium 9.5 mg/dL (8.6-10.3); Carbon Dioxide 28 mEq/L (23-29); Chloride 107 mEq/L (98-107); Glucose 114 mg/dL (70-105); Magnesium 2.1 mg/dL (1.6-2.6); Osmolality,Calculated 296 (280-300); Potassium 3.6 mEq/L (3.5-5.1); Sodium 143 mEq/L (136-145); eGFR For African Americans > 60 (> 60); eGFR For Non-African Americans > 60 (> 60)
--- NOTE | 2017-08-14 15:03 | Emergency Department Note ---
Disposition Clinical Impression: Atrial fibrillation Qualifiers: Atrial fibrillation type: chronic Qualified Code(s): I48.2 - Chronic atrial fibrillation Disposition: Admitted As Inpatient Condition: Good Time of Disposition: 15:13 General Adult HPI - General Chief complaint: ED Arrhythmia/Palpitations Stated complaint: HEART OUT OF RYTHYM Time Seen by Provider: 08/14/17 13:20 Source: patient Limitations: no limitations Nursing Notes Reviewed: Yes Vital Signs Reviewed: Yes - History of Present Illness HPI Narrative: Palpitations a began today while at work. No chest pain or shortness of breath. Does have a history of A. fib RVR. States it feels the same as previous.. Has had a history of ablation over a year ago. No episodes since. Not on anticoagulation. Pain Scale: 0 - Related Data Home Medications Medication Instructions Recorded Confirmed No Known Home Drugs 08/14/17 08/14/17 Allergies Allergy/AdvReac Type Severity Reaction Status Date / Time acetaminophen [From Vicodin] Allergy Nausea Verified 08/14/17 15:32 hydrocodone [From Vicodin] Allergy Nausea Verified 08/14/17 15:32 All systems ED: reviewed and negative except as stated. Constitutional: Denies: fever, chills Cardiovascular: Reports: palpitations. Denies: chest pain, syncope Respiratory: Denies: cough, dyspnea Gastrointestinal: Denies: abdominal pain, nausea, vomiting, diarrhea Genitourinary: Denies: urgency, dysuria, frequency, hematuria Musculoskeletal: Denies: back pain, neck pain Neurological: Denies: headache, weakness Past Medical History - Past Medical History Attestation: Yes The following information was validated with the patient. Source: patient Medical history: Reports: atrial fibrillation, GERD Surgical history: Reports: no surgical history Psychiatric history: Reports: anxiety - Social History Smoking Status: Never smoker Smokeless Tobacco Status: No Alcohol use: Reports: none Drug use: Reports: none Physical Exam - General Limitations: no limitations General appearance: alert, in no apparent distress - Head Head exam: atraumatic, normocephalic, normal inspection - Eye Eye exam: Present: normal appearance, PERRL, EOMI. Absent: scleral icterus - ENT ENT exam: normal exam, normal oropharynx, mucous membranes moist - Neck Neck exam: Present: normal inspection, full ROM, trachea midline - Chest Chest inspection: Present: normal inspection, symmetric chest wall rise - Respiratory Respiratory exam: Present: normal lung sounds bilaterally. Absent: respiratory distress - Cardiovascular Cardiovascular exam: Present: tachycardia, irregular rhythm, normal heart sounds - Abdominal Exam Abdominal exam: Present: soft, Non-Tender. Absent: tenderness, distention, rigidity, organomegaly - Extremities Exam Extremities exam: Present: normal inspection, full ROM, normal capillary refill. Absent: tenderness, pedal edema - Back Exam Back exam: Present: normal inspection, full ROM. Absent: tenderness - Neurological Exam Neurological exam: Present: alert, oriented X3 - Psychiatric Psychiatric exam: Present: normal affect, normal mood - Skin Skin exam: Present: warm, dry, intact, normal color Course Course Narrative: Male patient presents emergency department complaining of palpitations. States that this started happening while he was at work. Denies any chest pain or shortness of breath. States it feels like he is running a marathon. Does have a history of A. fib. Had an ablation one year ago. Had no episodes of A. fib since then. Is not on any anticoagulation at this time. He is in A. fib with RVR at this time. He was given one Cardizem bolus. This did not jerrica patient' s A. fib. We will give him a second bolus at this time and place him on a drip. We did a basic lab workup and chest x-ray which was unremarkable. We will admit him to the hospital. He is agreeable with this. - Consultations Consultation #1: I spoke with Dr. Quan. Time: 15:53 Vital Signs Temperature 98.3 F 08/14/17 13:17 Pulse Rate 83 08/14/17 13:17 Respiratory Rate 16 08/14/17 13:17 Blood Pressure 131/72 08/14/17 13:17 O2 Sat by Pulse Oximetry 97 08/14/17 13:17 Temperature 98.3 F 08/14/17 13:21 Pulse Rate 133 08/14/17 17:44 Respiratory Rate 17 08/14/17 17:44 Blood Pressure 108/88 08/14/17 17:44 O2 Sat by Pulse Oximetry 96 08/14/17 17:44 Oxygen Delivery Oxygen Delivery Room Air Medical Decision Making - Medical Records Medical records reviewed: Yes I reviewed the patient's medical records. - Lab Data Lab results reviewed: Yes I reviewed the patient's lab results. Result diagrams: 08/14/17 13:42 08/14/17 13:42 Lab Results 08/14/17 08/14/17 Range/Units 13:42 13:42 WBC 4.2 L (4.3-11.1) K/mcL RBC 4.69 (4.19-5.50) M/mcL Hgb 14.3 (12.9-16.9) g/dL Hct 40.8 (37.5-50.1) % MCV 87.0 (83.0-100.0) fL MCH 30.5 (28.0-33.3) pg MCHC 35.0 (31.6-35.5) g/dL RDW 12.3 (11.5-14.5) % Plt Count 299 (140-400) K/mcL MPV 8.8 L (9.4-12.4) fL Immature Gran % 0.0 (0-4) % Seg Neutrophils % 48.9 % Lymphocytes % 40.5 % Monocytes % 8.2 % Eosinophils % 2.2 % Basophils % 0.2 % Neutrophils # 2.0 (1.6-8.9) K/mcL Lymphocytes # 1.7 (0.6-4.6) K/mcL Monocytes # 0.3 (0.0-1.3) K/mcL Eosinophils # 0.1 (0.0-0.6) K/mcL Basophils # 0.0 (0.0-0.2) K/mcL Sodium 143 (136-145) mEq/L Potassium 3.6 (3.5-5.1) mEq/L Chloride 107 (98-107) mEq/L Carbon Dioxide 28 (23-29) mEq/L BUN 11 (6-20) mg/dL Creatinine 0.87 (0.70-1.30) mg/dL Est GFR ( Amer) > 60 (> 60) Est GFR (Non-Af Amer) > 60 (> 60) BUN/Creatinine Ratio 13 (6-26) Glucose 114 H (70-105) mg/dL Calculated Osmolality 296 (280-300) Calcium 9.5 (8.6-10.3) mg/dL Magnesium 2.1 (1.6-2.6) mg/dL Troponin I < 0.03 (< 0.04) ng/mL TSH < 0.010 L (0.340-5.600) mcIU/mL - Radiology Data Radiology results reviewed: Yes I reviewed the patient's radiology results. Chest X-Ray 08/14/17 13:56 IMPRESSION: No acute process. D/ / Serjio Duenas MD / Serjio Duenas MD Interpreting Provider: Serjio Duenas MD - EKG Data EKG #1 EKG attestation: Yes I reviewed and interpreted this EKG. EKG results narrative: A. fib with RVR at a rate of 163. QRS duration is 189. QT is 286. QTC is 376. No signs of acute ischemia. Patient was in a normal sinus rhythm on previous EKG dated 08/21/2016.
[2017-08-14 17:19] LABS: Thyroid Stimulating Hormone < 0.010 mcIU/mL (0.340-5.600)
[2017-08-14] MEDS ORDERED: *HR* HYDROcodone/Acet 5/325 mg TABLET PO PRN (17:31)
[2017-08-14] MEDS ORDERED: Ondansetron 4 MG/2 ML VIAL IVP PRN (17:31)
[2017-08-14] MEDS ORDERED: *HR* Promethazine 25 MG/ML VIAL IVP PRN (17:31)
[2017-08-14] MEDS ORDERED: Acetaminophen 325 MG TABLET PO PRN (17:31)
[2017-08-14] MEDS ORDERED: Naloxone 0.4 MG/ML INJ IVP PRN (17:31)
--- NOTE | 2017-08-14 17:57 | Internal Med History&Physical ---
Date of Encounter: 08/14/17 Time of Encounter: 17:57 Internal Medicine - H&P: HPI Chief complaint: Palpitations Admitted From: Emergency Dept Plans for Post Hospital Care: Home History of present illness: Mr. Cintron is a 47 year old male with known PMH of Paroxsyma Afib who had cardiac ablation in 07/2016 at [facility], currently not on any rate control and anti coag meds pt presented to ER c/o today at work he started having palpitations. He denied any CP / SOB. He is in Afib with RVR HR in 160's initially. Pt was given Cardizem IV boluses x 2, and started him on IV Cardizem gtt. Past Med Surg Social Fam HX - Past Medical History Medical history: atrial fibrillation, GERD Psychiatric history: anxiety - Past Surgical History Surgical History: no surgical history - Social History Smoking Status: Never smoker Smokeless Tobacco Status: No Alcohol use: none Drug use: none - Family History Father Living Status: Hx Family Endocrine Disorder: Yes Mother Living Status: Still Living Hx Family Cardiac Disorders: Yes (atrial fibrillitation) Internal Medicine - H&P: Meds No Known Home Drugs 08/14/17 [History] 3 Allergy/AdvReac Type Severity Reaction Status Date / Time acetaminophen [From Vicodin] Allergy Nausea Verified 08/14/17 15:32 hydrocodone [From Vicodin] Allergy Nausea Verified 08/14/17 15:32 All Systems PM: A 10-system review of systems was performed and is negative for pertinent findings except as documented above in the HPI. Review of systems: Reviewed all the systems and symptoms, everything is benign except the systems and symptoms I mentioned in HPI. - Constitutional Vitals: Temp Pulse Resp BP Pulse Ox 98.3 F 133 17 108/88 96 08/14/17 13:21 08/14/17 17:44 08/14/17 17:44 08/14/17 17:44 08/14/17 17:44 General appearance: Present: A&O X 3, no acute distress, answers questions appropriately - Head Head exam: Present: atraumatic, normal inspection - Neck Neck exam general surgery: Present: supple - Respiratory Respiratory exam: Present: decreased breath sounds. Absent: rales, respiratory distress, rhonchi, wheezes - Cardiovascular Cardiovascular exam: Present: irregular rhythm, +S1, +S2, tachycardia. Absent: systolic murmur - GI/Abdominal GI/Abdominal exam: Present: normal bowel sounds, soft. Absent: rebound, rigid, tenderness - Extremities Exam Extremities exam: Absent: calf tenderness, pedal edema, tenderness - Back Exam Back exam: Absent: CVA tenderness (L), CVA tenderness (R) - Neurological Exam Neurological exam: Present: alert, oriented X3 - Psychiatric Psychiatric exam: Present: normal affect, normal mood - Skin Skin exam: Absent: rash Internal Med - H&P Results - Labs CBC & Chem 7: 08/14/17 13:42 08/14/17 13:42 Labs: Short CBC 08/14/17 Range/Units 13:42 WBC 4.2 L (4.3-11.1) K/mcL Hgb 14.3 (12.9-16.9) g/dL Hct 40.8 (37.5-50.1) % Plt Count 299 (140-400) K/mcL Neutrophils # 2.0 (1.6-8.9) K/mcL BMP 08/14/17 13:42 Sodium 143 Potassium 3.6 Chloride 107 Carbon Dioxide 28 BUN 11 Creatinine 0.87 Glucose 114 H Calcium 9.5 Cardiac Enzymes 08/14/17 Range/Units 13:42 Troponin I < 0.03 (< 0.04) ng/mL - Impressions ITS Impressions Chest X-Ray 08/14/17 13:56 IMPRESSION: No acute process. D/ / Serjio Duenas MD / Serjio Duenas MD Interpreting Provider: Serjio Duenas MD - Assessment and plan (1) Atrial fibrillation with RVR Current Visit: No Status: Resolved Assessment and plan: Admit the pt into Tele Need to r/o ACS place pt on child monitor check serial trop so far negative trop Reviewed EKG showed Afib with RVR, HR 163 Cont Cardizem gtt CHADSVASC score is 0.. Started him on ASA Will get 2 D Echo in AM - Time Spent With Patient Total time spent is greater than 50% in coordination of care (as documented) at patient's floor/unit and/or counseling patient:
[2017-08-14] MEDS: Aspirin Enteric Coated 81 MG Tablet PO SCH (21:00)
[2017-08-14] MEDS: *HR* Enoxaparin 80 MG/0.8 ML SYRINGE SQ SCH (21:00)
[2017-08-15 02:31] LABS: Basophils % 0.5 %; Eosinophils # 0.1 K/mcL (0.0-0.6); Eosinophils % 2.5 %; Hematocrit 39.6 % (37.5-50.1); Hemoglobin 13.7 g/dL (12.9-16.9); Lymphocytes # 2.2 K/mcL (0.6-4.6); Lymphocytes % 51.2 %; Mean Corpuscular HGB Conc 34.6 g/dL (31.6-35.5); Mean Corpuscular Volume 86.8 fL (83.0-100.0); Mean Platelet Volume 8.6 fL (9.4-12.4); Monocytes # 0.4 K/mcL (0.0-1.3); Monocytes % 8.5 %; Neutrophils # 1.6 K/mcL (1.6-8.9); Platelet Count 252 K/mcL (140-400); Red Blood Count 4.56 M/mcL (4.19-5.50); Red Cell Distribution Width 12.5 % (11.5-14.5); Segmented Neutrophils % 37.3 %
[2017-08-15 02:53] LABS: BUN/Creatinine Ratio 13 (6-26); Blood Urea Nitrogen 11 mg/dL (6-20); Calcium 8.8 mg/dL (8.6-10.3); Carbon Dioxide 28 mEq/L (23-29); Chloride 108 mEq/L (98-107); Chol/HDL Ratio 4.4 (0-4.9); Cholesterol 176 mg/dL (< 200); Glucose 106 mg/dL (70-105); HDL Cholesterol 40 mg/dL (40-59); LDL Cholesterol,Calculated 114 mg/dL (0-99); Magnesium 2.1 mg/dL (1.6-2.6); Osmolality,Calculated 292 (280-300); Potassium 3.5 mEq/L (3.5-5.1); Sodium 141 mEq/L (136-145); Triglycerides 111 mg/dL (< 150); Troponin I < 0.03 ng/mL (< 0.04); eGFR For African Americans > 60 (> 60); eGFR For Non-African Americans > 60 (> 60)
[2017-08-15] MEDS: *HR* Enoxaparin 80 MG/0.8 ML SYRINGE SQ SCH ×2 (05:45→17:46)
[2017-08-15] MEDS: Aspirin Enteric Coated 81 MG Tablet PO SCH (08:37)
--- NOTE | 2017-08-15 09:51 | Internal Med Progress Note ---
Date of Encounter: 08/15/17 Time of Encounter: 09:48 - Assessment and plan (1) Atrial fibrillation with RVR Current Visit: No Status: Resolved Assessment and plan: so far negative trop Cont Cardizem gtt Card consulted CHADSVASC score is 0.. Cont ASA Card suggested possible Cardioversion on Thursday if he does not convert in next 24 hrs So will continue Lovenox for now for anti coag 2 D Echo - P (2) Abnormal TSH Current Visit: Yes Status: Acute Assessment and plan: Significantly low TSH concern for hyperthyroidism ordered stat T3 and T4 levels (3) HLD (hyperlipidemia) Current Visit: Yes Status: Acute Assessment and plan: LDL -114 recommend diet modifications Qualifiers: Hyperlipidemia type: unspecified Qualified Code(s): E78.5 - Hyperlipidemia , unspecified - Time Spent With Patient Total time spent is greater than 50% in coordination of care (as documented) at patient's floor/unit and/or counseling patient: - Subjective Interval history: Mr. Cintron is a 47 year old male with known PMH of Paroxsyma Afib who had cardiac ablation in 07/2016 at [facility], currently not on any rate control and anti coag meds pt presented to ER c/o today at work he started having palpitations. Pt was admitted here for A fib with RVR and placed him on cardizem gtt. His HR is in 90-100's, however still in A fib. Denied any CP. No SOB - Constitutional Vitals: Temp Pulse Resp BP Pulse Ox 97.7 F 70 16 104/72 96 08/15/17 07:22 08/15/17 07:22 08/15/17 07:22 08/15/17 07:22 08/15/17 07:22 General appearance: Present: A&O X 3, no acute distress, answers questions appropriately - Head Head exam: Present: atraumatic, normal inspection - Neck Neck exam general surgery: Present: supple - Respiratory Respiratory exam: Present: CTAB. Absent: accessory muscle use, rales, rhonchi, wheezes - Cardiovascular Cardiovascular exam: Present: irregular rhythm, +S1, +S2, tachycardia - GI/Abdominal GI/Abdominal exam: Present: normal bowel sounds, soft. Absent: rebound, rigid, tenderness - Extremities Exam Extremities exam: Absent: calf tenderness, pedal edema, tenderness - Back Exam Back exam: Absent: CVA tenderness (L), CVA tenderness (R) - Neurological Exam Neurological exam: Present: alert, oriented X3 - Psychiatric Psychiatric exam: Present: normal affect, normal mood Internal Medicine: Result - Labs CBC & Chem 7: 08/15/17 02:09 08/15/17 02:09 Labs: Short CBC 08/15/17 Range/Units 02:09 WBC 4.3 (4.3-11.1) K/mcL Hgb 13.7 (12.9-16.9) g/dL Hct 39.6 (37.5-50.1) % Plt Count 252 (140-400) K/mcL Neutrophils # 1.6 (1.6-8.9) K/mcL BMP 08/15/17 02:09 Sodium 141 Potassium 3.5 Chloride 108 H Carbon Dioxide 28 BUN 11 Creatinine 0.82 Glucose 106 H Calcium 8.8 Cardiac Enzymes 08/14/17 08/15/17 Range/Units 21:56 02:09 Troponin I < 0.03 < 0.03 (< 0.04) ng/mL Consult Discharge Plan - Plan Referrals: Mark Norwood DO [Primary Care Provider] -
--- NOTE | 2017-08-15 10:27 | Cardiology Consult Note ---
Date of Encounter: 08/15/17 Time of Encounter: 10:22 Assessment and Plan (1) PAF (paroxysmal atrial fibrillation) Current Visit: No Status: Chronic Paroxysmal atrial fibrillation in the setting of an abnormal TSH, possible hyperthyroidism. Remains RVR. Nurse instructed to get a 10 mg Cardizem IV bolus and increase rate to 10 mg per hour. The patient, his , and I discussed current findings. At this point, TSH appears to be abnormal. We will continue a rate control strategy with Cardizem as abnormal TSH is investigated. If needed, we can change to a beta lalo if he has hyperthyroidism. Chads vasc score is 0. However, given possible need for cardioversion prior to discharge, recommend continuation of anticoagulation for now and likely upon discharge. Check TTE. Further recommendations to follow. Discussion w patient/family: The assessment and plan as outlined above was discussed with the patient and/or family members who expressed understanding and agreement. All questions were answered. Thank you for involving us in the care of your patient. Please call with any questions. History of Present Illness Consult date: 08/15/17 Requesting physician: Dusty Larsen Consult reason: AF Chief complaint: Palpitations History of present illness: Mr. Cintron is a 47 year old male with a history of atrial fibrillation. He underwent AF ablation in 07/2016 at [facility]. In general, patient reports he has done well since ablation. Yesterday, however, he noticed return of palpitations. Due to this tachycardia, he presented to the ER, where he was diagnosed with AF with RVR. Heart rate remains tachycardic. In addition, TSH noted to be low. T4/T3 pending. He has no known history of thyroid issues. Interestingly, previous TSH was also low. Patient was told to follow-up and have this repeated. Past Med Surg Social Fam HX - Past Medical History Medical history: atrial fibrillation, GERD Psychiatric history: anxiety - Past Surgical History Surgical History: no surgical history - Social History Smoking Status: Never smoker Smokeless Tobacco Status: No Alcohol use: none Drug use: none - Family History Father History Unknown: Yes Living Status: Hx Family Endocrine Disorder: Yes Mother Living Status: Still Living Hx Family Cardiac Disorders: Yes (atrial fibrillitation) Medications and Allergies No Known Home Drugs 08/14/17 [History] 3 Allergy/AdvReac Type Severity Reaction Status Date / Time acetaminophen [From Vicodin] Allergy Nausea Verified 08/14/17 15:32 hydrocodone [From Vicodin] Allergy Nausea Verified 08/14/17 15:32 All Systems Review: The remainder of the systems were reviewed and are negative - Cardiovascular Cardiovascular: as per HPI, palpitations Physical Examination Vital Signs, Last 4 Hours Temp Pulse Resp BP Pulse Ox 08/15/17 07:22 97.7 F 70 16 104/72 96 General: Conversant, No Apparent Distress HEENT: Atraumatic, Normocephaly, Mucus Membranes Moist Neck: No JVD, Normal carotid pulses Cardiac: Other (Irregular rate and rhythm, tachycardic.) Lungs: Normal Breath Sounds, No Wheeze, Rales, Rhonchi Neuro: Alert and responsive, No focal deficits noted Abdomen: Soft, Non-Tender Skin: No rashes noted on visualized skin Musculoskeletal: No Chest Wall Tenderness Extremities: No Clubbing, No Cyanosis, No Edema Results 08/15/17 02:09 08/15/17 02:09 Lab Results 08/14/17 08/15/17 08/15/17 21:56 02:09 02:09 WBC 4.3 Hgb 13.7 Hct 39.6 Plt Count 252 Sodium 141 Potassium 3.5 Chloride 108 H Carbon Dioxide 28 BUN 11 Creatinine 0.82 Glucose 106 H Calcium 8.8 Magnesium 2.1 Troponin I < 0.03 < 0.03 - Imaging and Cardiology Echo: pending - EKG Interpretation EKG results cardiology: personally reviewed Consult Discharge Plan - Plan Referrals: Mark Norwood DO [Primary Care Provider] -
[2017-08-15 10:37] LABS: Triiodothyronine (T3) Free 5.83 pg/mL (2.50-3.90)
[2017-08-15] MEDS ORDERED: Diltiazem CD (24hr) 120 MG CAPSULE PO SCH (15:45)
[2017-08-15] MEDS: methIMAzole 5 MG TABLET PO SCH (16:52)
[2017-08-16] MEDS: *HR* Enoxaparin 80 MG/0.8 ML SYRINGE SQ SCH (05:43)
[2017-08-16 06:50] VITALS: BP 108/69
--- NOTE | 2017-08-16 08:28 | Discharge Summary ---
- NOTES TO OUTPATIENT PROVIDER Notes to Outpatient Provider: f/u with PCP in one week. f/u with Resistor Winder in 1-2 weeks.. Ask your PCP for refferal. Go for thyroid uptake scan in 2 days and follow with PCP for test results Orders not resulted at time of discharge: Pending orders 08/15/17 14:36 ECG 12 lead ECG [ECG] Stat 08/15/17 15:43 NM thyroid w uptake [NM] Routine Date of Encounter: 08/16/17 Time of Encounter: 08:23 - Discharge Diagnosis (1) Atrial fibrillation with RVR Priority: Primary Status: Resolved (2) Abnormal TSH Priority: Primary Status: Acute (3) HLD (hyperlipidemia) Priority: Secondary Status: Acute Qualifiers: Hyperlipidemia type: unspecified Qualified Code(s): E78.5 - Hyperlipidemia , unspecified (4) Hyperthyroidism Priority: Primary Status: Acute Hospital course: Mr. Cintron is a 47 year old male with known Paroxysmal Afib pt who had Cardiac ablation in 07/2016 at [facility] now presented to our ER with palpitations. He happened to be in A fib with RVR, so started him on Cardizem gtt. Pt's TSH was significantly low and T3 and T4 were high , looks like pt does have hyperthyroidism. So started him on Tapazole 5mg PO Daily. Also recommend to f/u with Resistor Winder as an out pt. Also ordered out pt thyroid uptake NM scan. He got converted to NSR y/d now started him on B lalo Metoprolol. His CHADSVAS score 0, so he can continue ASA 81mg for anticoagulation. - Time Spent with Patient Total time spent providing and/or coordinating discharge services: - Discharge Medications Prescriptions: Aspirin Enteric Coated [Aspirin EC] 81 mg PO DAILY #30 tablet. methIMAzole [Tapazole] 5 mg PO DAILY #30 tablet Metoprolol [Lopressor] 25 mg PO BID #60 tablet Home Medications: Aspirin Enteric Coated [Aspirin EC] 81 mg PO DAILY #30 tablet. 08/16/17 [Rx] Metoprolol [Lopressor] 25 mg PO BID #60 tablet 08/16/17 [Rx] methIMAzole [Tapazole] 5 mg PO DAILY #30 tablet 08/16/17 [Rx] Allergies/Adverse Reactions: 3 Allergy/AdvReac Type Severity Reaction Status Date / Time acetaminophen [From Vicodin] Allergy Nausea Verified 08/14/17 15:32 hydrocodone [From Vicodin] Allergy Nausea Verified 08/14/17 15:32 Date of admission: 08/14/17 20:07 Primary care physician: Mark Norwood, - Constitutional Vitals: Temp Pulse Resp BP Pulse Ox 97.6 F 93 16 108/69 97 08/16/17 06:48 08/16/17 06:48 08/16/17 06:48 08/16/17 06:48 08/16/17 06:48 General appearance: Present: A&O X 3, no acute distress, answers questions appropriately - Head Head exam: Present: atraumatic, normal inspection - Neck Neck exam general surgery: Present: supple - Respiratory Respiratory exam: Present: CTAB. Absent: respiratory distress, rhonchi, wheezes - Cardiovascular Cardiovascular exam: Present: +S1, +S2. Absent: systolic murmur, tachycardia - GI/Abdominal GI/Abdominal exam: Present: normal bowel sounds, soft. Absent: rebound, rigid, tenderness - Back Exam Back exam: Absent: CVA tenderness (L), CVA tenderness (R) - Psychiatric Psychiatric exam: Present: normal affect, normal mood - Patient Status Disposition: Home, Self-Care Condition: Good Overall status at discharge: patient is back to baseline - Ambulatory Orders Ambulatory Orders: NM thyroid w uptake [NM] Time Frame: 08/18/17, Facility: [facility], Location: Lab - Discharge Instructions Follow Up With: Mark Norwood DO [Primary Care Provider] - - Diet and Activity Activity: increase activity as tolerated Diet: low salt diet
[2017-08-16] MEDS: Aspirin Enteric Coated 81 MG Tablet PO SCH (09:17)
[2017-08-16] MEDS: methIMAzole 5 MG TABLET PO SCH (09:17)
--- NOTE | 2017-08-18 05:09 | Electrocardiograph Report ---
[address] [address] Test Date: 2017-08-14 Pat Name: Jesse Cintron Department: 102 Room: 2NE20 Gender: M Exhaust Worker: Adrian : 1970 Requested By: Candice Durant Order Number: [id number] Reading MD: Wu Quan Measurements Intervals [place] Rate: 171 P: MO: 0 QRS: 5 QRSD: 92 T: 6 QT: 259 QTc: 352 Interpretive Statements ATRIAL FIBRILLATION WITH RAPID VENTRICULAR RESPONSE WITH ABERRANT CONDUCTION OR VENTRICULAR PREMATURE COMPLEXES ABNORMAL RHYTHM ECG Electronically Signed On 08-18-2017 5:08:41 EDT by Wu Quan
--- NOTE | 2017-08-18 05:50 | Electrocardiograph Report ---
[place] [address] Test Date: 2017-08-15 Pat Name: Jesse Cintron Department: 111 Room: 2NE20 Gender: M Otolaryngology Surgeon: YARED : 1970 Requested By: Wu Quan Order Number: [id number] Reading MD: Wu Quan Measurements Intervals [place] Rate: 88 P: 18 WA: 118 QRS: 15 QRSD: 94 T: 23 QT: 354 QTc: 400 Interpretive Statements SINUS RHYTHM WITH SHORT WA INTERVAL Electronically Signed On 08-18-2017 5:48:37 EDT by Wu Quan
== END 2017-08-16 10:34 | disposition home or self-care (01) | DRG 310 ==
LOC: EMEROO 13:14 → 2NENU 13:14
PROVIDERS: ADMIT Family Medicine; ATTEND Family Medicine

== ENCOUNTER 2017-10-22 20:22 | Observation (INO) ==
[2017-10-22] MEDS ORDERED: *HR* Metoprolol 5 MG/5 ML VIAL IVP ONE (20:47)
[2017-10-22 20:51] LABS: Basophils % 0.5 %; Eosinophils # 0.1 K/mcL (0.0-0.6); Eosinophils % 1.6 %; Hematocrit 42.5 % (37.5-50.1); Immature Granulocytes % 0.2 % (0-4); Lymphocytes # 2.3 K/mcL (0.6-4.6); Lymphocytes % 39.9 %; Mean Corpuscular HGB Conc 35.3 g/dL (31.6-35.5); Mean Corpuscular Hemoglobin 31.2 pg (28.0-33.3); Mean Corpuscular Volume 88.4 fL (83.0-100.0); Mean Platelet Volume 8.5 fL (9.4-12.4); Monocytes # 0.3 K/mcL (0.0-1.3); Platelet Count 279 K/mcL (140-400); Red Blood Count 4.81 M/mcL (4.19-5.50); Red Cell Distribution Width 12.3 % (11.5-14.5); Segmented Neutrophils % 51.8 %
[2017-10-22] MEDS ORDERED: 0.9 % Sodium Chloride 500 ML IVC ONE (20:53)
--- NOTE | 2017-10-22 20:55 | Emergency Department Note ---
Disposition Clinical Impression: Paroxysmal atrial fibrillation with RVR Disposition: Admitted As Inpatient Condition: Fair Arrhythmia/Palpitations HPI - General Chief Complaint: ED Arrhythmia/Palpitations Stated Complaint: fast hr hx of afib Time Seen by Provider: 10/22/17 20:27 Source: patient Mode of arrival: ambulatory Limitations: no limitations Nursing Notes Reviewed: Yes Vital Signs Reviewed: Yes - History of Present Illness HPI Narrative: This is a 47 year-old male with history of paroxysmal a-fib and recently- diagnosed hyperthyroidism who presents with palpitations described as "heart beating fast" that began 2 hours ago as he was mowing the lawn. He reports mild lightheadedness but is otherwise asymptomatic. He denies any chest pain, dyspnea , or nausea. Pt Subjective Complaint: rapid heart beat, palpitations Onset (ago): hour(s) (2) Duration: constant Severity: mild Context: occurred during exertion (mowing lawn) Arrhythmia History: atrial fibrillation, history of ablation Associated symptoms: Denies: chest pain, shortness of breath, syncope, near- syncope, nausea, vomiting - Related Data Previous Rx's Medication Instructions Recorded Aspirin Enteric Coated [Aspirin EC] 81 mg PO DAILY #30 tablet. 08/16/17 Metoprolol [Lopressor] 25 mg PO BID #60 tablet 08/16/17 methIMAzole [Tapazole] 30 mg PO DAILY #30 tablet 10/23/17 Allergies Allergy/AdvReac Type Severity Reaction Status Date / Time acetaminophen [From Vicodin] Allergy Nausea Verified 10/23/17 09:45 hydrocodone [From Vicodin] Allergy Nausea Verified 10/23/17 09:45 All systems ED: reviewed and negative except as stated. Cardiovascular: Reports: as per HPI, palpitations. Denies: chest pain, edema Respiratory: Denies: dyspnea Gastrointestinal: Denies: nausea Past Medical History - Past Medical History Medical history: Reports: atrial fibrillation, GERD Surgical history: Reports: no surgical history Psychiatric history: Reports: anxiety - Social History Smoking Status: Never smoker Smokeless Tobacco Status: No Alcohol use: Reports: none Drug use: Reports: none Physical Exam - General Limitations: no limitations General appearance: alert, in no apparent distress - Head Head exam: atraumatic, normocephalic - Eye Eye exam: Present: normal appearance - Respiratory Respiratory exam: Present: normal lung sounds bilaterally. Absent: respiratory distress - Cardiovascular Cardiovascular exam: Present: tachycardia, irregular rhythm. Absent: systolic murmur, diastolic murmur, rubs, gallop - Abdominal Exam Abdominal exam: Present: soft, Non-Tender. Absent: distention - Extremities Exam Extremities exam: Present: normal inspection. Absent: pedal edema, calf tenderness - Neurological Exam Neurological exam: Present: alert, oriented X3. Absent: motor sensory deficit - Psychiatric Psychiatric exam: Present: normal affect, normal mood - Skin Skin exam: Present: warm, dry, intact Course - Reevaluation(s) Reevaluation #1: Patient resting comfortably, asymptomatic. Rate has improved after the metoprolol, now averaging about 95, but patient remains in a-fib. BP in low/ normal range (~97 systolic). We will give more saline (pt has just had 500 mL so far). This will allow a little more time for conversion to NSR, and if BP improves, we will try more metoprolol. If he fails to convert, we will admit. Time: 21:37 - Consultations Consultation #1: Discussed case with patient's tree cutter. She asked that we check some additional thyroid tests, which have been ordered. If FT4 is elevated, she recommends that patent restart methimazole. 23:00 - Patient's tree cutter called back. We reviewed patient's thyroid tests, and she recommended that patient be restarted on methimazole, 30 mg daily. Time: 21:48 Consultation #2: Reviewed case with Dr. Henley, who has accepted patient for admission. We will call cardiology for their recommendations and to consult on patient upstairs. Time: 22:53 Consultation #3: Paged cardiology Time: 23:00 Vital Signs Temperature 97.3 F L 10/22/17 20:24 Pulse Rate 103 10/22/17 20:24 Respiratory Rate 20 10/22/17 20:24 Blood Pressure 105/71 10/22/17 20:24 O2 Sat by Pulse Oximetry 97 10/22/17 20:24 Temperature 98.0 F 10/23/17 15:15 Pulse Rate 80 10/23/17 15:15 Respiratory Rate 18 10/23/17 15:15 Blood Pressure 99/62 10/23/17 15:15 O2 Sat by Pulse Oximetry 99 10/23/17 15:15 Oxygen Delivery Oxygen Delivery Room Air Arrhythmia/Palpitations - Lab Data Lab results reviewed: Yes I reviewed the patient's lab results. Result diagrams: 10/23/17 04:15 10/23/17 04:15 Lab Results 10/22/17 10/22/17 Range/Units 20:28 20:38 WBC 5.7 (4.3-11.1) K/mcL RBC 4.81 (4.19-5.50) M/mcL Hgb 15.0 (12.9-16.9) g/dL Hct 42.5 (37.5-50.1) % MCV 88.4 (83.0-100.0) fL MCH 31.2 (28.0-33.3) pg MCHC 35.3 (31.6-35.5) g/dL RDW 12.3 (11.5-14.5) % Plt Count 279 (140-400) K/mcL MPV 8.5 L (9.4-12.4) fL Immature Gran % 0.2 (0-4) % Seg Neutrophils % 51.8 % Lymphocytes % 39.9 % Monocytes % 6.0 % Eosinophils % 1.6 % Basophils % 0.5 % Neutrophils # 3.0 (1.6-8.9) K/mcL Lymphocytes # 2.3 (0.6-4.6) K/mcL Monocytes # 0.3 (0.0-1.3) K/mcL Eosinophils # 0.1 (0.0-0.6) K/mcL Basophils # 0.0 (0.0-0.2) K/mcL Sodium 141 (136-145) mEq/L Potassium 3.9 (3.5-5.1) mEq/L Chloride 106 (98-107) mEq/L Carbon Dioxide 29 (23-29) mEq/L BUN 15 (6-20) mg/dL Creatinine 1.21 (0.70-1.30) mg/dL Est GFR ( Amer) > 60 (> 60) Est GFR (Non-Af Amer) > 60 (> 60) BUN/Creatinine Ratio 12 (6-26) Glucose 111 H (70-105) mg/dL Calculated Osmolality 294 (280-300) Calcium 9.5 (8.6-10.3) mg/dL Magnesium 2.2 (1.6-2.6) mg/dL Troponin I < 0.03 (< 0.04) ng/mL TSH 0.027 L (0.340-5.600) mcIU/mL Free T4 1.07 (0.70-2.00) ng/dl Free T3 4.36 H (2.50-3.90) pg/mL Total T3 1.16 (0.87-1.78) ng/mL - Radiology Data Radiology results reviewed: Yes I reviewed the patient's radiology results. XR/XR chest 1V portable IMPRESSION: 1. No acute cardiopulmonary disease. - EKG Data EKG attestation: Yes I reviewed and interpreted this EKG. Rate: tachycardia Rhythm: A.Fib [place]/QRS: normal P waves: absent When compared to previous EKG there are: changes noted
[2017-10-22 21:16] LABS: BUN/Creatinine Ratio 12 (6-26); Blood Urea Nitrogen 15 mg/dL (6-20); Calcium 9.5 mg/dL (8.6-10.3); Carbon Dioxide 29 mEq/L (23-29); Chloride 106 mEq/L (98-107); Glucose 111 mg/dL (70-105); Magnesium 2.2 mg/dL (1.6-2.6); Osmolality,Calculated 294 (280-300); Potassium 3.9 mEq/L (3.5-5.1); Sodium 141 mEq/L (136-145); eGFR For African Americans > 60 (> 60); eGFR For Non-African Americans > 60 (> 60)
[2017-10-22 21:17] LABS: Troponin I < 0.03 ng/mL (< 0.04)
[2017-10-22 21:30] LABS: Thyroid Stimulating Hormone 0.027 mcIU/mL (0.340-5.600)
[2017-10-22] MEDS ORDERED: 0.9 % Sodium Chloride 1,000 ML IVC ONE (21:39)
[2017-10-22 22:23] LABS: Triiodothyronine (T3) Free 4.36 pg/mL (2.50-3.90)
[2017-10-22 22:28] LABS: Triiodothyronine (T3) Total 1.16 ng/mL (0.87-1.78)
[2017-10-22] MEDS ORDERED: methIMAzole 5 MG TABLET PO STA (23:02)
[2017-10-23] MEDS ORDERED: Naloxone 0.4 MG/ML INJ IVP PRN (01:34)
[2017-10-23] MEDS ORDERED: 0.9 % Sodium Chloride 1,000 ML IVC ONE (01:52)
--- NOTE | 2017-10-23 01:58 | Internal Med History&Physical ---
Date of Encounter: 10/23/17 Time of Encounter: 00:40 Internal Medicine - H&P: HPI Admitted From: Home Plans for Post Hospital Care: Home History of present illness: Mr. Cintron is a 47 year old male Patient was outside mowing his lawn when he noted that he was in A. fib. He states he can always tell when this heart goes into atrial fibrillation. He has had it for 10 years, previously well managed and on metoprolol, he had been sinus rhythm up until this point. He was recently diagnosed with hyperthyroidism and his fire sprinkler apparatus inspector had discontinued his methimazole 3 weeks ago so that they can obtain lab work. He denies chest pain, nausea and shortness of breath. He experienced lightheadedness during the first moments of his afib. In the ER he was noted to be tachycardic, and a dose of metoprolol was given. His rate improved, but his blood pressure also dropped and he remained in afib. A call was made to the patient's fire sprinkler apparatus inspector regarding lab work for his thyroid and these labs were obtained. The fire sprinkler apparatus inspector also advised to start the patient's methimazole again, but at an increased dose of 30mg daily. Patient was admitted to the floor for continued management of his afib. Past Med Surg Social Fam HX - Past Medical History Medical history: atrial fibrillation, GERD, thyroid disease Psychiatric history: anxiety - Past Surgical History Surgical History: no surgical history Additional surgical history: cardiac ablation 2016 - Social History Smoking Status: Never smoker Smokeless Tobacco Status: No Alcohol use: none Drug use: none - Family History Father Living Status: Hx Family Endocrine Disorder: Yes Mother Living Status: Still Living Hx Family Cardiac Disorders: Yes (atrial fibrillitation) Internal Medicine - H&P: Meds Aspirin Enteric Coated [Aspirin EC] 81 mg PO DAILY #30 tablet. 08/16/17 [Rx] Metoprolol [Lopressor] 25 mg PO BID #60 tablet 08/16/17 [Rx] methIMAzole [Tapazole] 5 mg PO DAILY #30 tablet 08/16/17 [Rx] 3 Allergy/AdvReac Type Severity Reaction Status Date / Time acetaminophen [From Vicodin] Allergy Nausea Verified 08/14/17 15:32 hydrocodone [From Vicodin] Allergy Nausea Verified 08/14/17 15:32 All Systems PM: A 10-system review of systems was performed and is negative for pertinent findings except as documented above in the HPI. - Constitutional Vitals: Temp Pulse Resp BP Pulse Ox 97.4 F L 85 15 110/71 97 10/23/17 00:31 10/23/17 00:31 10/23/17 00:31 10/23/17 00:31 10/23/17 00:31 General appearance: Present: A&O X 3, pleasant, no acute distress - Eye Eye exam: Present: EOMI, normal appearance - Respiratory Respiratory exam: Present: CTAB. Absent: decreased breath sounds, respiratory distress - Cardiovascular Cardiovascular exam: Present: irregular rhythm, tachycardia. Absent: clicks, diastolic murmur, systolic murmur - GI/Abdominal GI/Abdominal exam: Present: normal bowel sounds, soft. Absent: firm, tenderness - Extremities Exam Extremities exam: Present: full ROM, warm, radial pulses palpable and symmetrical. Absent: calf tenderness, tenderness - Neurological Exam Neurological exam: Present: oriented X3, strengths equal and symetr throughout. Absent: altered, facial droop, speech deficit - Skin Skin exam: Present: dry, normal color, warm. Absent: rash Internal Med - H&P Results - Labs CBC & Chem 7: 10/23/17 04:15 10/23/17 04:15 - Assessment and plan (1) Paroxysmal atrial fibrillation with RVR Current Visit: Yes Status: Acute Assessment and plan: Patient's rate upon reaching the floor was in the mid 90s. It is felt that his thyroid issues are playing a role in his atrial fibrillation. Patient denies shortness of breath and chest pain. Cardiology consult called from ER, but was unsuccessful. Continue to monitor rate Cardizem drip if his rate increases, as this has worked for him in the past. Monitor blood pressures Restarted methimazole as per endocrinology recommendations. Cardiology consult if unsuccessful with rate control. (2) Hyperthyroidism Current Visit: No Status: Acute Assessment and plan: As per fire sprinkler apparatus inspector, recommended obtaining thyroid function labs and restarting methimazole at 30mg daily. Continue medication. (3) DVT prophylaxis Current Visit: No Status: Acute Assessment and plan: Heparin - Time Spent With Patient Total time spent is greater than 50% in coordination of care (as documented) at patient's floor/unit and/or counseling patient: Greater than 35 minutes
[2017-10-23 04:45] LABS: Mean Corpuscular HGB Conc 34.5 g/dL (31.6-35.5); Mean Corpuscular Hemoglobin 30.1 pg (28.0-33.3); Mean Corpuscular Volume 87.4 fL (83.0-100.0); Mean Platelet Volume 8.7 fL (9.4-12.4); Platelet Count 236 K/mcL (140-400); Red Blood Count 4.35 M/mcL (4.19-5.50); Red Cell Distribution Width 12.7 % (11.5-14.5)
[2017-10-23 04:50] LABS: Hemoglobin 13.1 g/dL (12.9-16.9)
[2017-10-23 05:02] LABS: BUN/Creatinine Ratio 15 (6-26); Blood Urea Nitrogen 13 mg/dL (6-20); Calcium 8.2 mg/dL (8.6-10.3); Carbon Dioxide 28 mEq/L (23-29); Chloride 110 mEq/L (98-107); Glucose 100 mg/dL (70-105); Osmolality,Calculated 292 (280-300); Sodium 141 mEq/L (136-145); eGFR For African Americans > 60 (> 60); eGFR For Non-African Americans > 60 (> 60)
[2017-10-23] MEDS ORDERED: *HR* Heparin 5,000 UNIT/ML VIAL SQ SCH (06:00)
[2017-10-23] MEDS ORDERED: methIMAzole 5 MG TABLET PO SCH (09:00)
--- NOTE | 2017-10-23 10:54 | Event Note ---
<Alcon Mercado - Last Filed: 10/23/17 10:23> Date of Encounter: 10/23/17 Time of Encounter: 09:30 Subjective: Patient notes history of A fib for approx 10 years. S/p ablation at [facility] approx 1 year ago. Last episode of Afib was in July, secondary to hyperthyroidism. Thyroid levels abnormal this visit suggestive of hyperthyroid, endocrine notified by ED, recommending restarting methimazole. Patient states he currently feels his HR is irregular, on monitor HR is 140s A fib with RVR. Patient sees Dr. Quan, Cardiology as outpatient. Denies chest pain, dyspnea, dizziness, nausea, abd pain edema. On rechecking telemetry 15 mins later HR was 70s and regular. PE: Constitutional: no acute distress, pleasant, A&Ox3 Head: normocephalic, atraumatic, normal inspection Eye: normal inspection, EOMI, conjunctive pink, sclera anicteric Neck: supple, normal ROM Resp: CTAB. No rales, rhonchi, wheezing CV: Tachycardic, irregular, no murmurs/rubs/gallops Abd: BS+, soft, nondistended, nontender Extremities: no edema, no cyanosis, nontender, warm Skin: dry, intact, warm, no rash Neuro: A&Ox3, no focal deficits, no abnormal speech Psych: normal mood and affect Assessment and plan: (1) Paroxysmal atrial fibrillation with RVR Hx of Afib, on metoprolol at home. Current episode likely 2/2 to thyroid issues. Paroxysmal afib this AM on telemetry. Received IV metoprolol last night, BP not able to tolerate metoprolol or cardizem this morning. Monitor blood pressures, consider cardizem drip if BP can tolerate. Restarted methimazole, 30mg daily, as per endocrinology recommendations. Consider cardiology consult if unsuccessful with rate control. Continue telemetry. (2) Hypotension SBP this AM of 95/58. Had received NS IVF overnight and one time IV dose of metoprolol. Continue to monitor, consider additional IVF. (3) Hyperthyroidism TSH low at 0.02 and free T3 high at 4.36. Per authorization rep, restarted methimazole at 30mg daily. (4) DVT prophylaxis SQ Heparin <Jake Donovan - Last Filed: 10/23/17 12:54> Date of Encounter: 10/23/17 I performed an independent interview and examine this patient. I agree with the findings, assessment, and plan of Dr. mercado, internal medicine resident. Patient is asymptomatic presently. Rate is controlled. We will discuss the case with cardiology for any additional recommendations, otherwise may potentially discharge later today. Gen: NAD, AAOx3 Skin warm and dry Neck supple Lung CTAB Ht IRR Abd Soft, NT +BS Ext -no edema
--- NOTE | 2017-10-23 14:15 | Discharge Summary ---
<Alcon Felton - Last Filed: 10/23/17 14:13> - NOTES TO OUTPATIENT PROVIDER Notes to Outpatient Provider: Follow up outpatient for hyperthyroidism and Atrial fib. Date of Encounter: 10/23/17 Time of Encounter: 09:30 - Discharge Diagnosis (1) Paroxysmal atrial fibrillation with RVR Priority: Primary Status: Acute (2) DVT prophylaxis Priority: Secondary Status: Acute (3) Hyperthyroidism Priority: Secondary Status: Acute Hospital course: Mr. Cintron is a 47 year old male Patient was outside mowing his lawn when he noted that he was in A. fib. He states he can always tell when this heart goes into atrial fibrillation. He has had it for 10 years, previously well managed and on metoprolol. He was recently diagnosed with hyperthyroidism and his cream cheese maker had discontinued his methimazole 3 weeks ago so that they can obtain lab work. He denies chest pain, nausea and shortness of breath. He experienced lightheadedness during the first moments of his afib. In the ER he was noted to be tachycardic, and a dose of metoprolol was given. His rate improved, but his blood pressure also dropped and he remained in afib. A call was made to the patient's cream cheese maker regarding lab work for his thyroid and these labs were obtained. TSH was low at 0.027 and free T3 elevated at 4.36. The cream cheese maker also advised to start the patient's methimazole again, but at an increased dose of 30mg daily. Patient was admitted to the floor for continued management of his afib. This morning patient converted to NSR around 9 :30am and has remained rate controlled and asymptomatic throughout the day. Cardiology curbsided and in agreement for hospitalist plan to restart patient's home metoprolol dose and discharge with methimazole to follow up with cardiology and endocrinology as outpatient. Patient vitals monitored and stable ; patient remains asymptomatic and is agreeable to plan for discharge home. Discharge discussed with: patient, family, nurse - Time Spent with Patient Total time spent providing and/or coordinating discharge services: Less than 30 minutes - Discharge Medications Prescriptions: methIMAzole [Tapazole] 30 mg PO DAILY #30 tablet Home Medications: Aspirin Enteric Coated [Aspirin EC] 81 mg PO DAILY #30 tablet. 08/16/17 [Rx] Metoprolol [Lopressor] 25 mg PO BID #60 tablet 08/16/17 [Rx] methIMAzole [Tapazole] 30 mg PO DAILY #30 tablet 10/23/17 [Rx] Allergies/Adverse Reactions: 3 Allergy/AdvReac Type Severity Reaction Status Date / Time acetaminophen [From Vicodin] Allergy Nausea Verified 10/23/17 09:45 hydrocodone [From Vicodin] Allergy Nausea Verified 10/23/17 09:45 Date of admission: 10/23/17 00:12 Primary care physician: Mark Norwood, Discharging clinician: Jake Donovan Anticipated date of discharge: 10/23/17 - Constitutional Vitals: Temp Pulse Resp BP Pulse Ox 97.9 F 82 19 100/63 96 10/23/17 11:42 10/23/17 11:42 10/23/17 11:42 10/23/17 11:42 10/23/17 11:42 - Other Additional findings: Constitutional: no acute distress, pleasant, A&Ox3 Head: normocephalic, atraumatic, normal inspection Eye: normal inspection, EOMI, conjunctive pink, sclera anicteric Neck: supple, normal ROM Resp: CTAB. No rales, rhonchi, wheezing CV: Tachycardic, irregular, no murmurs/rubs/gallops Abd: BS+, soft, nondistended, nontender Extremities: no edema, no cyanosis, nontender, warm Skin: dry, intact, warm, no rash Neuro: A&Ox3, no focal deficits, no abnormal speech Psych: normal mood and affect - Patient Status Disposition: Home, Self-Care Condition: Fair Functional capacity at discharge: independent ambulation Overall status at discharge: patient is back to baseline - Discharge Instructions Instructions: Atrial Fibrillation (DC), Hyperthyroidism (DC) Follow Up With: Mark Norwood DO [Primary Care Provider] - Wu Quan DO [Partnered Physician] - Additional Instructions: Please take medications as prescribed. Recommend close follow up in the next couple of weeks with your cost and risk analysis manager and cream cheese maker for your Atrial fibrillation and hyperthyroidism. Please return or seek medical care if you have new or worsening symptoms such as chest pain, palpitations, shortness of breath, dizziness. - Diet and Activity Activity: resume usual activities as tolerated Diet: advance to your usual diet <Jake Donovan - Last Filed: 10/23/17 15:09> Date of Encounter: 10/23/17 - Discharge Diagnosis (1) Paroxysmal atrial fibrillation with RVR Status: Acute (2) DVT prophylaxis Status: Acute (3) Hyperthyroidism Status: Acute Hospital course: Mr. Cintron is a 47 year old male - Time Spent with Patient Total time spent providing and/or coordinating discharge services: Date of admission: 10/23/17 00:12 Primary care physician: Mark Norwood, - Constitutional Vitals: Temp Pulse Resp BP Pulse Ox 97.9 F 82 19 100/63 96 10/23/17 11:42 10/23/17 11:42 10/23/17 11:42 10/23/17 11:42 10/23/17 11:42 - Attending Attestation I performed an independent exam of this patient. I am in agreement with the findings, assessment, plan of Dr. felton, internal medicine resident. We discussed this patient and my input is included in her note. Patient's heart rate remained under good control. Patient restarted Tapazole which is likely related to his recurrence of atrial fibrillation with rapid ventricular response. Patient is feeling well and asymptomatic otherwise. The case was discussed with cardiology who agreed with continuing his beta lalo and aspirin as before. Patient otherwise was doing well and deemed stable for discharge. Exam: Gen: Awake alert and oriented 3 no acute distress Skin warm and dry Neck supple Lungs clear bilaterally Heart IRR Abdomen soft nontender, normoactive bowel sounds Extremities no edema
[2017-10-23 15:16] VITALS: BP 99/62
--- NOTE | 2017-10-24 11:17 | Electrocardiograph Report ---
[address] [address] Test Date: 2017-10-22 Pat Name: Jesse Cintron Department: 104 Room: [facility] Gender: M Rn Primary Care: YARED : 1970 Requested By: Alfredo Higginbotham Order Number: [id number] Reading MD: Fitz Carson Measurements Intervals [place] Rate: 125 P: CO: 0 QRS: 14 QRSD: 101 T: 10 QT: 290 QTc: 364 Interpretive Statements ATRIAL FIBRILLATION WITH RAPID VENTRICULAR RESPONSE ABNORMAL RHYTHM ECG Electronically Signed On 10-24-2017 11:15:59 EDT by Fitz Carson
== END 2017-10-23 15:53 | disposition home or self-care (01) ==
LOC: EMEROO 20:22 → 2ANU 20:22
PROVIDERS: ADMIT Family Medicine; ATTEND Family Medicine

== ENCOUNTER 2019-01-12 04:10 | Observation (INO) ==
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
[2019-01-12 04:44] LABS: Basophils % 0.7 %; Eosinophils # 0.1 K/mcL (0.0-0.6); Eosinophils % 2.2 %; Hematocrit 47.9 % (37.5-50.1); Hemoglobin 15.9 g/dL (12.9-16.9); Immature Granulocytes % 0.2 % (0-4); Lymphocytes % 32.7 %; Mean Corpuscular HGB Conc 33.2 g/dL (31.6-35.5); Mean Corpuscular Hemoglobin 30.6 pg (28.0-33.3); Mean Corpuscular Volume 92.3 fL (83.0-100.0); Mean Platelet Volume 8.5 fL (9.4-12.4); Monocytes # 0.5 K/mcL (0.0-1.3); Monocytes % 7.5 %; Neutrophils # 3.4 K/mcL (1.6-8.9); Platelet Count 303 K/mcL (140-400); Red Blood Count 5.19 M/mcL (4.19-5.50); Red Cell Distribution Width 12.2 % (11.5-14.5); Segmented Neutrophils % 56.7 %
[2019-01-12 04:50] LABS: INR 0.9; Prothrombin Time 10.3 Seconds (9.4-12.1)
[2019-01-12 04:53] LABS: Activated Partial Thrombo Time 32.3 Seconds (26.0-36.0)
[2019-01-12] MEDS ORDERED: 0.9 % Sodium Chloride 1,000 ML ONE (04:58)
[2019-01-12] MEDS ORDERED: 0.9 % Sodium Chloride 1,000 ML IVC SCH (05:00)
[2019-01-12 05:03] LABS: Alanine Aminotransferase 24 Units/L (7-52); Albumin 4.4 g/dL (3.5-5.7); Albumin/Globulin Ratio 1.7 (1.1-2.2); Alkaline Phosphatase 63 Units/L (34-104); Aspartate Amino Transferase 23 Units/L (13-39); BUN/Creatinine Ratio 10 (6-26); Bilirubin,Direct 0.1 mg/dL (0.0-0.2); Bilirubin,Indirect 0.3 mg/dL (0.0-1.2); Bilirubin,Total 0.4 mg/dL (0.3-1.0); Blood Urea Nitrogen 11 mg/dL (6-20); Calcium 9.2 mg/dL (8.6-10.3); Carbon Dioxide 30 mEq/L (23-29); Chloride 104 mEq/L (98-107); Globulin 2.6 g/dL (2.4-3.5); Glucose 115 mg/dL (70-105); Osmolality,Calculated 292 (280-300); Potassium 4.2 mEq/L (3.5-5.1); Sodium 141 mEq/L (136-145); eGFR For African Americans > 60 (> 60); eGFR For Non-African Americans > 60 (> 60)
[2019-01-12 05:04] LABS: Troponin I < 0.03 ng/mL (< 0.04)
[2019-01-12 05:18] LABS: Thyroid Stimulating Hormone 4.332 mcIU/mL (0.340-5.600)
[2019-01-12] MEDS ORDERED: 0.9 % Sodium Chloride 500 ML ONE (05:51)
[2019-01-12] MEDS ORDERED: 0.9 % Sodium Chloride 500 ML IVC ONE (05:52)
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
[2019-01-12] MEDS ORDERED: *HR* Enoxaparin 80 MG/0.8 ML SYRINGE SQ SCH (08:46)
[2019-01-12] MEDS ORDERED: Aspirin Enteric Coated 81 MG Tablet PO SCH (09:00)
[2019-01-12] MEDS ORDERED: methIMAzole 5 MG TABLET PO SCH (09:00)
[2019-01-12] MEDS ORDERED: Perflutren Lipid Microsphere 1.3 ML in 0.9 % Sodium Chloride 8.7 ML IVP ONE (11:47)
[2019-01-12 16:08] VITALS: BP 112/71
--- NOTE | 2019-01-13 06:42 | Electrocardiograph Report ---
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
--- NOTE | 2019-01-13 06:43 | Electrocardiograph Report ---
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
[2019-01-13 09:43] LABS: Magnesium 2.3 mg/dL (1.6-2.6); Phosphorous 3.8 mg/dL (2.7-4.5)
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
--- NOTE | 2019-01-13 17:26 | Electrocardiograph Report ---
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
== END 2019-01-12 18:46 | disposition home or self-care (01) ==
LOC: 2NENU 04:10 → EMEROOARM 04:10 → SUATTDRO 06:28 → 2NENU 07:42
PROVIDERS: ADMIT Internal Medicine; ATTEND Internal Medicine

== ENCOUNTER 2021-06-05 21:18 | Observation (INO) ==
[2021-06-05 22:26] LABS: Basophils % 0.5 %; Eosinophils # 0.2 K/mcL (0.0-0.6); Eosinophils % 2.6 %; Hematocrit 42.5 % (37.5-50.1); Hemoglobin 14.4 g/dL (12.9-16.9); Immature Granulocytes % 0.1 % (0-4); Lymphocytes # 1.8 K/mcL (0.6-4.6); Lymphocytes % 24.4 %; Mean Corpuscular HGB Conc 33.9 g/dL (31.6-35.5); Mean Corpuscular Hemoglobin 30.9 pg (28.0-33.3); Mean Corpuscular Volume 91.2 fL (83.0-100.0); Mean Platelet Volume 8.4 fL (9.4-12.4); Monocytes # 0.5 K/mcL (0.0-1.3); Neutrophils # 4.8 K/mcL (1.6-8.9); Platelet Count 280 K/mcL (140-400); Red Blood Count 4.66 M/mcL (4.19-5.50); Red Cell Distribution Width 12.4 % (11.5-14.5); Segmented Neutrophils % 65.4 %; White Blood Count 7.4 K/mcL (4.3-11.1)
[2021-06-05 22:48] LABS: BUN/Creatinine Ratio 12 (6-26); Blood Urea Nitrogen 14 mg/dL (6-20); Calcium 9.3 mg/dL (8.6-10.3); Carbon Dioxide 33 mEq/L (23-29); Chloride 103 mEq/L (98-107); Glucose 106 mg/dL (70-105); Osmolality,Calculated 291 (280-300); Potassium 3.8 mEq/L (3.5-5.1); Sodium 140 mEq/L (136-145); Troponin I < 0.03 ng/mL (< 0.04); eGFR For African Americans > 60 (> 60); eGFR For Non-African Americans > 60 (> 60)
[2021-06-05] MEDS ORDERED: 0.9 % Sodium Chloride 1,000 ML ONE (22:53)
[2021-06-05] MEDS ORDERED: 0.9 % Sodium Chloride 1,000 ML IV ONE ×2 (22:57→23:40)
[2021-06-05 23:01] LABS: Thyroid Stimulating Hormone 3.249 mcIU/mL (0.340-5.600)
[2021-06-06] MEDS ORDERED: 0.9 % Sodium Chloride 1,000 ML IVC ONE (02:31)
[2021-06-06 03:16] LABS: Troponin I < 0.03 ng/mL (< 0.04)
[2021-06-06] MEDS ORDERED: Melatonin 3 MG TABLET PO PRN (04:15)
[2021-06-06] MEDS ORDERED: Naloxone 0.4 MG/ML INJ IVP PRN (04:15)
[2021-06-06] MEDS ORDERED: Perflutren Lipid Microsphere 1.3 ML in 0.9 % Sodium Chloride 8.7 ML IVP PRN (04:18)
[2021-06-06 05:03] LABS: Ethanol < 10 mg/dL (Less than 10); Magnesium 1.8 mg/dL (1.6-2.6)
[2021-06-06] MEDS ORDERED: *HR* Heparin 5,000 UNIT/ML VIAL IVP PRN ×2 (05:38)
[2021-06-06] MEDS ORDERED: *HR* Heparin 5,000 UNIT/ML VIAL IVP ONE (05:38)
[2021-06-06 05:39] LABS: Bilirubin,Urine Negative (Negative); Blood,Urine Negative (Negative); Clarity,Urine Clear (Clear); Color,Urine Colorless (Yellow); Glucose,Urine (UA) Normal (Normal); Ketones,Urine Negative (Negative); Leukocyte Esterase,Urine Negative (Negative); Nitrite,Urine Negative (Negative); Protein,Urine Negative (Neg-Trace); Specific Gravity,Urine 1.007 (1.010-1.025); Urobilinogen,Urine Normal (Normal)
[2021-06-06] MEDS ORDERED: Magnesium Sulfate 1 GM/102 ML PIGGYBACK IVPB ONE (05:40)
[2021-06-06] MEDS ORDERED: Heparin 25,000UNIT/250ML 1/2NS 25,000 UNIT/250 ML IV.SOLN IVC SCH (05:45)
[2021-06-06 05:50] LABS: Amphetamine Screen,Urine Negative ng/mL (Cutoff=1000); Barbiturate Screen,Urine Negative ng/mL (Cutoff=200); Benzodiazepines Screen,Urine Negative ng/mL (Cutoff=200); Cannabinoid Screen,Urine Negative ng/mL (Cutoff = 50); Cocaine Screen,Urine Negative ng/mL (Cutoff= 300); Opiate Screen,Urine Negative ng/mL (Cutoff=300); Phencyclidine Screen,Urine Negative ng/mL (Cutoff=25)
[2021-06-06 06:25] LABS: Influenza A PCR Negative (Negative); Influenza B PCR Negative (Negative); Resp. Syncytial Virus PCR Negative (Negative); SARS-CoV-2 by PCR (In House) Negative (Negative)
[2021-06-06 07:37] LABS: Heparin anti-factor XA UFH < 0.04 IU/mL (0.30-0.70); Prothrombin Time 11.2 Seconds (9.4-12.1)
[2021-06-06] MEDS: Aspirin 81 MG TAB.CHEW PO SCH (11:37)
[2021-06-07 07:09] VITALS: O2SAT 96
[2021-06-07] MEDS: Aspirin 81 MG TAB.CHEW PO SCH (07:59)
[2021-06-07 10:53] VITALS: BP 130/84; PULSE 77; TEMP 97.3
== END 2021-06-07 12:40 | disposition home or self-care (01) ==
LOC: EMEROOARM 21:18 → 2NNU 21:18 → SUATTDRO 06-06 04:15 → 2NNU 06-06 04:45 → 3ANU 06-06 21:52
PROVIDERS: ADMIT Student in an Organized Health Care Education/Training Program; ATTEND Internal Medicine